=== PATIENT | female | born 1995 | race Caucasian/White ===

== ENCOUNTER 2022-10-18 19:50 | Observation (INO) | payer OTHER, BC, MEDICAID, SELFPAY ==
[2022-10-18 19:30] VITALS: BP 143/103; PULSE 115; RESP 18; TEMP 37.1; O2SAT 100
[2022-10-18 20:14] VITALS: BP 137/90; PULSE 115
[2022-10-18 20:23] VITALS: BMI 40.3
--- NOTE | 2022-10-18 20:23 | OBADM ---
This patient, Judy Vela, admitted to the OB room [facility] for observation. Patient/family oriented to hospital policies and general routines including ID bracelet, bed and alarms, visiting hours, pain management, procedures, bathroom and other care routines, personal items, smoking policy, room service/diet, and visiting hours. Patient/Family are encouraged to report perceived risks to care and to ask questions if they do not understand what they are told or what they should do.
[2022-10-18 20:30] VITALS: BP 128/86; PULSE 120
--- NOTE | 2022-10-28 07:48 | PM.OBTRLD ---
OB - Triage/Final Diagnosis Visit Information Date of evaluation: 10/21/22 Reason for evaluation: other (trauma) Comments/Additional reasons for admission: I have assessed the risk for this patient, Judy Vela, and determined that she would benefit from observation care. Evaluation Laboratory results: Laboratory Tests 10/18/22 21:03 KB Hemoglobin Negative
== END 2022-10-18 21:06 | disposition home or self-care (01) ==
PROVIDERS: Admitting Provider Obstetrics & Gynecology; PCP Internal Medicine; Visit Provider Obstetrics & Gynecology
DX: Z04.1 Encounter for examination and observation following transport accident (principal); Z3A.23 23 weeks gestation of pregnancy
CPT/HCPCS: 36415; 85460; G0378; G0379

== ENCOUNTER 2022-11-07 09:53 | Outpatient (RCR) | payer OTHER, BC, MEDICAID, SELFPAY ==
[2022-11-07] MEDS: RHO(D) IMMUNE GLOBULIN 300 MCG/2 ML SYRINGE IM (12:30)
== END 2022-11-07 10:00 | disposition home or self-care (01) ==
LOC: ANHLAB 09:53
PROVIDERS: PCP Internal Medicine; Visit Provider Obstetrics & Gynecology
DX: Z29.13 Encounter for prophylactic Rho(D) immune globulin (principal); O36.0190 Maternal care for anti-D [Rh] antibodies, unspecified trimester, not applicable or unspecified; Z3A.00 Weeks of gestation of pregnancy not specified
CPT/HCPCS: 36415; 85461; 86850; 86870; 86880; 86900; 86901; 86902; 86971; 90384; 96372; J2790

== ENCOUNTER 2022-12-14 08:21 | Observation (INO) | payer OTHER, BC, MEDICAID, SELFPAY ==
--- NOTE | ~2022-12-14 | US_ITS ---
EXAMINATION: 1. US OB limited 2. US transvaginal DATE: 12/14/2022 09:51 INDICATION: Vaginal bleeding. Third trimester. TECHNIQUE: Real-time ultrasound of the pelvis was performed. COMPARISON: None. FINDINGS: There is a single fetus in vertex presentation. The placenta is anterior. heart rate is 164 be ats per minute (bpm). The amniotic fluid volume is subjectively normal. The cervical length is 5 mm on transvaginal images, which is short. IMPRESSION: 1. Single living fetus in vertex presentation. 2. Normal placenta. 3. Short cervix. Reviewed, dictated and finalized at location A. IMPRESSION: 1. Single living fetus in vertex presentation. 2. Normal placenta. 3. Short cervix.
[2022-12-14 08:45] VITALS: BMI 40.3
[2022-12-14 08:49] VITALS: BP 143/90; PULSE 114
[2022-12-14 09:00] VITALS: BP 133/94; PULSE 124
[2022-12-14 09:15] LABS: Appearance Urine Cloudy (Clear); Bacteria Urine None Seen /hpf; Bilirubin Urine Negative (Negative); Blood Urine 3+ (Negative); Color Urine Dark Yellow (Yellow); Glucose Urine UA Negative (Negative); Ketones Urine Trace mg/dL (Negative); Leukocyte Esterase Ur 1+ LEU/UL (Negative); Nitrate Urine Negative (Negative); Non Pathogenic Casts 0-2; Protein Urine 1+ mg/dL (Negative); Specific Grav Ur 1.019 (1.001-1.035); Squamous Epithelial Cell Urine Moderate /hpf (Few); pH Urine 7.5 (5.0-9.0)
[2022-12-14 09:18] LABS: Add Urine Microscopic? YES
[2022-12-14 09:50] VITALS: BP 132/88; PULSE 105
[2022-12-14 10:01] VITALS: BP 135/83; PULSE 98
--- NOTE | 2022-12-14 10:47 | OBADM ---
This patient, Judy Vela, admitted to the OB room [facility] for observation. Patient/family oriented to hospital policies and general routines including ID bracelet, bed and alarms, visiting hours, pain management, procedures, bathroom and other care routines, personal items, smoking policy, room service/diet, and visiting hours. Patient/Family are encouraged to report perceived risks to care and to ask questions if they do not understand what they are told or what they should do.
--- NOTE | 2022-12-28 08:52 | P.PNOB_ITS ---
OB - Triage/Final Diagnosis Visit Information Comments/Additional reasons for admission: I have assessed the risk for this patient, Judy Vela, and determined that she would benefit from observation care. Evaluation Laboratory results: Laboratory Tests 12/14/22 09:02 Urine Color Dark yellow Urine Appearance Cloudy H Urine pH 7.5 Ur Specific [place] 1.019 Urine Protein 1+ H Urine Glucose (UA) Negative Urine Ketones Trace H Ur Blood (Man) 3+ H Urine Nitrate Negative Urine Bilirubin Negative Urine Urobilinogen 1.0 Leukocyte Esterase Rfl 1+ H Urine RBC 3-5 H Urine WBC 11-20 H Ur Squamous Epith Cells Moderate Urine Bacteria None seen Urine Casts 0-2 Final Diagnosis (1) Vaginal bleeding in : Code(s): O46.90 - Antepartum hemorrhage, unspecified, unspecified trimester Status: Acute
== END 2022-12-14 10:45 | disposition home or self-care (01) ==
PROVIDERS: Admitting Provider Obstetrics & Gynecology; PCP Internal Medicine; Visit Provider Obstetrics & Gynecology
DX: O26.873 Cervical shortening, third trimester (principal); O46.93 Antepartum hemorrhage, unspecified, third trimester; Z3A.31 31 weeks gestation of pregnancy
CPT/HCPCS: 76815; 76817; 76830; 81001; 87086; 87088; G0378; G0379

== ENCOUNTER 2023-01-28 22:53 | Inpatient (IN) | payer OTHER, BC, MEDICAID, SELFPAY ==
[2023-01-28 23:08] VITALS: RESP 18; TEMP 36.4
--- NOTE | 2023-01-28 23:37 | PC.NURSE ---
2337: Dr. Michelle Prather notified of , 37.6 weeks arriving to unit with c/o leaking. MD aware of ROM plus performed with negative results, no contractions, reactive NST, vitals with elevated BP of 151/112, 156/104, and 158/98. PT denies headache, visual disturbances, right upper quadrant and epigastric pain. Orders to admit PT for overnight observation, PIH labs, and cervical exam.
[2023-01-29] VITALS (121 sets, daily range): BP systolic 94–163; BP diastolic 58–108; PULSE 74–161; RESP 14–18; TEMP 36.3–37.4; O2SAT 82–100; BMI 42.1; BMI 41.1
[2023-01-29 00:44] LABS: Basophils Percent Auto 0.2 % (0.2-1.2); Eosinophils Absolute Auto 0.1 K/mm3 (0-0.3); Eosinophils Percent Auto 0.4 % (0-4.4); Hemoglobin 12.5 g/dL (12.0-15.0); Immature Granulocyte Absolute 0.09 K/mm3 (0.00-0.031); Immature Granulocyte Percent A 0.7 % (0-0.5); Lymphocytes Absolute Auto 2.06 K/mm3 (0.9-3.2); Lymphocytes Percent Auto 16.9 % (18.3-44.2); Mean Corpuscular HGB Conc 33.8 g/dl (32-36); Mean Corpuscular Hemoglobin 31.1 pg (26-34); Mean Platelet Volume 10.2 fl (7.4-10.4); Monocytes Absolute Auto 0.8 K/mm3 (0.1-0.6); Monocytes Percent Auto 6.2 % (2.6-8.5); Neutrophils Absolute Auto 9.2 K/mm3 (1.3-6.7); Neutrophils Percent Auto 75.6 % (45.5-73.1); Platelet Count Result 253 k/mm3 (150-375); Red Blood Count 4.02 M/mm3 (4.2-5.4); Red Cell Distribution Width 12.8 % (11.5-14.5); White Blood Count 12.2 K/mm3 (4.5-10.0)
[2023-01-29 01:01] LABS: Alanine Aminotransferase 16 U/L (6-35); Albumin Level 3.5 g/dL (3.5-5.1); Alkaline Phosphatase 134 U/L (38-126); Anion Gap 6 mmol/L (8-16); Aspartate Amino Transferase 19 U/L (14-36); Bilirubin,Total 0.5 mg/dL (0.2-1.3); Blood Urea Nitrogen 10 mg/dL (7-17); Calcium 8.8 mg/dL (8.4-10.2); Carbon Dioxide 23 mmol/L (22-30); Chloride 106 mmol/L (98-107); Estimated Glomerular Filt Rate > 60; Glucose 87 mg/dL (65-110); Sodium 135 mmol/L (137-145); Uric Acid 3.6 mg/dL (2.5-7.5)
[2023-01-29 01:02] LABS: Creatinine Urine 116.7 mg/dL; Total Protein Urine Random 39 mg/dL; Ur Ttl Prot Creatinine Ratio 0.33 mg/mg (0-0.20)
--- NOTE | 2023-01-29 01:10 | PC.NURSE ---
0110: Dr. Michelle Prather notified of vitals, sve, and labs. No new orders received.
--- NOTE | 2023-01-29 01:25 | OBADM ---
This patient, Judy Vela, admitted to the OB room Labor/Delivery/Recovery 107 for observation. Patient/family oriented to hospital policies and general routines including ID bracelet, bed and alarms, visiting hours, pain management, procedures, bathroom and other care routines, personal items, smoking policy, room service/diet, and visiting hours. Patient/Family are encouraged to report perceived risks to care and to ask questions if they do not understand what they are told or what they should do.
[2023-01-29 01:41] LABS: HIV 1/2 Ab P24 Ag Result Negative (Negative)
[2023-01-29 02:44] LABS: Appearance Urine Turbid (Clear); Bacteria Urine 3+ /hpf; Bilirubin Urine Negative (Negative); Blood Urine 1+ (Negative); Color Urine Yellow (Yellow); Glucose Urine UA Negative (Negative); Ketones Urine Negative (Negative); Leukocyte Esterase Ur 3+ LEU/UL (Negative); Need Manual Microscopic Reviewed; Nitrate Urine Negative (Negative); Non Pathogenic Casts 0-2; Protein Urine 1+ mg/dL (Negative); RBC Urine 0-2 /hpf (0-2); Specific Grav Ur 1.015 (1.001-1.035); Squamous Epithelial Cell Urine Moderate /hpf (Few); Urobilinogen Urine 0.2 mg/dL (<2.0); WBC Urine 51-100 /hpf
[2023-01-29 02:46] LABS: Add Urine Microscopic? YES
--- NOTE | 2023-01-29 05:13 | PC.NURSE ---
0513: Dr. Michelle Prather notified of PT elevated BPs of 120/104 and 157/102, PT still asymptomatic. Orders to admit for induction of labor, give 200mg PO Labetolol, and low dose Pitocin.
[2023-01-29] MEDS: LABETALOL HCL 100 MG TABLET 200 MG PO (05:33)
--- NOTE | 2023-01-29 06:13 | PM.IMHP ---
H&P: HPI History of Present Illness Date/Time: 01/29/23 06:13 Chief Complaint: Leaking membranes Narrative: this is a 27-year-old 2 para 1 whose last menstrual period was 05/08/2022, EDC is 02/12/2023, confirmed by 10 week ultrasound presents at 38 weeks gestation complaining of possible rupture membranes. She was negative for leaking membranes however blood pressure was elevated. PIH labs are normal that she remains hypertensive. She has been chronically hypertensive throughout the as well. [facility] Family History Family History Mother Hypertension Son Myoclonic epilepsy Son Autism Social History Social History Smoking status: Never smoker Substance use: never Lack of Transportation: No Lack of Food: Never True Current Housing: I Have Housing Concerned About Future Housing: No Difficulty Paying Gas/Electric Bills: No Difficulty Paying for Meds: No Currently Unemployed: No Education: High School Diploma/GED Difficulty w/ Childcare or Family Care: No Spiritual care concerns: No Meds Home Medications and Allergies Home Medications Medication Instructions Recorded Confirmed Type ondansetron 4 mg disintegrating 4 mg PO Q6H PRN Nausea And Vomiting 01/18/23 01/29/23 History tablet vit no.95-ferrous 1 tablet PO DAILY 01/18/23 01/29/23 History fumarate 28 mg-folic acid 800 mcg tablet () rizatriptan 10 mg disintegrating 10 mg PO ONCE PRN migraines 01/18/23 01/29/23 History tablet Allergies Allergy/AdvReac Type Severity Reaction Status Date / Time No Known Allergies Allergy Unknown Unverified 10/18/22 19:41 Vital Signs Vital Signs - 24 hr 01/29/23 00:01 01/29/23 00:31 01/29/23 01:01 Pulse Rate 93 95 101 H Blood Pressure 150/90 H 156/93 H 145/93 H Pulse Oximetry Oxygen Delivery 01/29/23 02:01 01/29/23 02:16 01/29/23 02:22 Pulse Rate 133 H 88 Blood Pressure 148/108 H 144/91 H Pulse Oximetry 98 Oxygen Delivery 01/29/23 02:27 01/29/23 02:31 01/29/23 02:32 Pulse Rate 89 Blood Pressure 152/94 H Pulse Oximetry 96 98 Oxygen Delivery 01/29/23 02:37 01/29/23 02:42 01/29/23 02:46 Pulse Rate 114 H Blood Pressure 140/93 H Pulse Oximetry 97 97 Oxygen Delivery 01/29/23 02:47 01/29/23 02:52 01/29/23 02:57 Pulse Rate Blood Pressure Pulse Oximetry 98 98 98 Oxygen Delivery 01/29/23 03:01 01/29/23 03:02 01/29/23 03:07 Pulse Rate 80 Blood Pressure 146/91 H Pulse Oximetry 97 97 Oxygen Delivery 01/29/23 03:12 01/29/23 03:17 01/29/23 03:22 Pulse Rate Blood Pressure Pulse Oximetry 97 97 96 Oxygen Delivery 01/29/23 03:27 01/29/23 03:31 01/29/23 03:32 Pulse Rate 105 H Blood Pressure 145/93 H Pulse Oximetry 98 98 Oxygen Delivery 01/29/23 03:37 01/29/23 03:42 01/29/23 03:47 Pulse Rate Blood Pressure Pulse Oximetry 98 96 97 Oxygen Delivery 01/29/23 03:52 01/29/23 03:57 01/29/23 04:01 Pulse Rate 99 Blood Pressure 132/72 Pulse Oximetry 97 97 Oxygen Delivery 01/29/23 04:02 01/29/23 04:07 01/29/23 04:12 Pulse Rate Blood Pressure Pulse Oximetry 98 97 97 Oxygen Delivery 01/29/23 04:17 01/29/23 04:22 01/29/23 04:27 Pulse Rate Blood Pressure Pulse Oximetry 97 97 97 Oxygen Delivery 01/29/23 04:31 01/29/23 04:32 01/29/23 04:37 Pulse Rate 103 H Blood Pressure 108/81 Pulse Oximetry 98 98 Oxygen Delivery 01/29/23 04:42 01/29/23 04:47 01/29/23 04:52 Pulse Rate Blood Pressure Pulse Oximetry 97 97 96 Oxygen Delivery 01/29/23 04:57 01/29/23 05:02 01/29/23 05:07 Pulse Rate 101 H Blood Pressure 120/104 H Pulse Oximetry 97 99 98 Oxygen Delivery 01/29/23 05:09 01/29/23 05:12 01/29/23 05:16 Pulse Rate 87 94 Blood Pressure 157/1
[2023-01-29] MEDS: OXYTOCIN 30 UNITS/NS 500 ML 30 UNITS/500 ML BAG IV CONT (08:04)
[2023-01-29] MEDS: LACTATED RINGERS 1,000 ML 125 ML IV CONT (08:05)
[2023-01-29 09:17] LABS: HIV 1/2 Ab P24 Ag Result Negative (Negative)
[2023-01-29] MEDS: SODIUM CHLORIDE 0.9% IV 300 ML 600 ML I-UTERINE (09:55)
[2023-01-29] MEDS: fentaNYL CITRATE INJ (*CRX) 100 MCG/2 ML VIAL 50 MCG IV PUSH (09:56)
--- NOTE | 2023-01-29 10:33 | PC.NURSE ---
0953 - Introductions were made. Mother plans to bottle feed her infant with Enfamil. Early congratulations were given and encouragement of [facility] supporting mothers decision to feed her . Offer of assistance was given if mother should choose to make breast milk for her at a later time with supportive language to her decision. Primary RN is present for the brief conversation.
--- NOTE | 2023-01-29 10:36 | WPDANESEPPF ---
Anes - Initial Pre Proc Eval Procedure: labor epidural Date/Time: 01/29/23 10:36 Surgeon: Reji Prather MD Pre Op Diagnosis: labor pain Pre Op Diagnosis: PIH Patient Data Age: 27 Gender: F Height: 1.57 m Weight: 104.5 kg Last Vital Signs Temp 36.8 C 01/29/23 09:00 Pulse 84 01/29/23 10:31 Resp 18 01/28/23 23:08 BP 150/99 H 01/29/23 10:31 Pulse Ox 100 01/29/23 10:34 O2 Del Method Room Air 01/29/23 00:30 Allergies Allergy/AdvReac Type Severity Reaction Status Date / Time No Known Allergies Allergy Unknown Unverified 10/18/22 19:41 Home Medications Medication Instructions Recorded Confirmed Type ondansetron 4 mg disintegrating 4 mg PO Q6H PRN Nausea And Vomiting 01/18/23 01/29/23 History tablet vit no.95-ferrous 1 tablet PO DAILY 01/18/23 01/29/23 History fumarate 28 mg-folic acid 800 mcg tablet () rizatriptan 10 mg disintegrating 10 mg PO ONCE PRN migraines 01/18/23 01/29/23 History tablet Laboratory Tests 01/29/23 01/29/23 01/29/23 00:17 05:30 08:07 WBC 12.2 H K/mm3 (4.5-10.0) RBC 4.02 L M/mm3 (4.2-5.4) Hgb 12.5 g/dL (12.0-15.0) Hct 37.0 % (37.0-47.0) MCV 92.0 fl (80-100) MCH 31.1 pg (26-34) MCHC 33.8 g/dl (32-36) RDW 12.8 % (11.5-14.5) Plt Count 253 k/mm3 (150-375) MPV 10.2 fl (7.4-10.4) Immature Gran % (Auto) 0.7 H % (0-0.5) Neut % (Auto) 75.6 H % (45.5-73.1) Lymph % (Auto) 16.9 L % (18.3-44.2) [place] % (Auto) 6.2 % (2.6-8.5) Eos % (Auto) 0.4 % (0-4.4) Baso % (Auto) 0.2 % (0.2-1.2) Lymph # (Auto) 2.06 K/mm3 (0.9-3.2) Travis # (Auto) 0.8 H K/mm3 (0.1-0.6) Eos # (Auto) 0.1 K/mm3 (0-0.3) Baso # (Auto) 0.0 K/mm3 (0.0-0.1) Abs Immat Gran (auto) 0.09 H K/mm3 (0.00-0.031) Absolute Neuts (auto) 9.2 H K/mm3 (1.3-6.7) Absolute Nucleated RBC 0.0 K/mm3 (0.0-0.012) Nucleated RBC % 0.0 % (0.0-0.2) Sodium 135 L mmol/L (137-145) Potassium 4.0 mmol/L (3.4-5.0) Chloride 106 mmol/L (98-107) Carbon Dioxide 23 mmol/L (22-30) Anion Gap 6 L mmol/L (8-16) BUN 10 mg/dL (7-17) Creatinine 0.70 mg/dL (0.7-1.0) Estim Creat Clear Calc Not Reportable Estimated GFR > 60 (59 - ) Glucose 87 mg/dL (65-110) Uric Acid 3.6 mg/dL (2.5-7.5) Calcium 8.8 mg/dL (8.4-10.2) Total Bilirubin 0.5 mg/dL (0.2-1.3) AST 19 U/L (14-36) ALT 16 U/L (6-35) Alkaline Phosphatase 134 H U/L (38-126) Total Protein 7.0 g/dL (6.3-8.2) Albumin 3.5 g/dL (3.5-5.1) Urine Color Yellow (Yellow) Urine Appearance Turbid H (Clear) Urine pH 7.0 (5.0-9.0) Ur Specific [place] 1.015 (1.001-1.035) Urine Protein 1+ H mg/dL (Negative) Urine Glucose (UA) Negative mg/dL (Negative) Urine Ketones Negative mg/dL (Negative) Ur Blood (Man) 1+ H (Negative) Urine Nitrate Negative (Negative) Urine Bilirubin Negative (Negative) Urine Urobilinogen 0.2 mg/dL (<2.0) Add Ur Microanalysis Reviewed Leukocyte Esterase Rfl 3+ H PIA/UL (Negative) Urine RBC 0-2 /hpf (0-2) Urine WBC 51-100 H /hpf Ur Squamous Epith Cells Moderate /hpf (Few) Urine Bacteria 3+ H /hpf Urine Casts 0-2 U Random Total Protein 39 mg/dL Urine Creatinine 116.7 mg/dL Protein/Creat Ratio 2 0.33 H mg/mg (0-0.20) RPR Pending HIV 1&2 Ab/P24 Ag 4thGn Negative Negative (Negative) (Negative) Pa
--- NOTE | 2023-01-29 12:07 | PM.OBPRVD ---
OB - Delivery Note Procedure Delivery date: 01/29/23 Procedure: mil Events: Chronic Hypertension and Gestational Hypertension Induction method: AROM Delivery augmentation: Pitocin Delivery monitor: External FHT and Internal Uterine Route of delivery: Episiotomy description: None Laceration Description: Perineal - 2nd Degree Delivery repair: vicryl Specimen: No Quantitative Blood Loss (ml): 60 Anesthesia type: Epidural Disposition: Floor Baby Date of : 01/29/23 Time of : 11:56 Weeks of gestation at delivery: 38 Infant gender: Female Weight (pounds): 6 Weight (ounces): 1 presentation: vertex position: Right Occiput Anterior Placenta delivery description: Spontaneous Cord Vessel Description: 3 Vessels, Nuchal Cord and Loose score one minute: 7 score five minutes: 9
[2023-01-29] MEDS: OXYTOCIN 30 UNITS/NS 500 ML 30 UNITS/500 ML BAG 125 UNITS IV CONT (12:24)
[2023-01-29] MEDS: WITCH HAZEL 40 PADS 1 PAD TOPICAL (14:29)
[2023-01-29] MEDS: BENZOCAINE 20% AER SPR (*SP) 56 GM CAN 1 SPRAY TOPICAL (14:29)
[2023-01-30 04:00] VITALS: BP 130/81; PULSE 85; RESP 16; TEMP 36.3; O2SAT 100
[2023-01-30 05:29] LABS: Hemoglobin 11.3 g/dL (12.0-15.0)
--- NOTE | 2023-01-30 06:49 | PM.OBPNVD ---
OB - PN: Subj Subjective Date/time seen: 01/30/23 06:49 Patient comments: no complaints and pain well controlled baby status: doing well OB - PN: Obj Data Labs 01/30/23 04:06 01/29/23 00:17 Labs: Laboratory Results - last 24 hr 01/29/23 01/29/23 01/30/23 08:07 08:42 04:06 Hgb 11.3 L Hct 34.0 L HIV 1&2 Ab/P24 Ag 4thGn Negative Blood Type A Negative Antibody Screen Positive Positive OB - PN A/P Plan day: 1 Plan: routine care Time Spent With Patient Time: Total time spent is greater than 50% in coordination of care (as documented) at patient's floor/unit and/or counseling patient: Time with patient: less than 15 minutes Exam Const: General: cooperative, healthy appearing and comfortable Nutritional Appearance: average body habitus Orientation/consciousness: oriented to person, oriented to place and oriented to time HENMT: Head: normal to inspection Resp: Effort & Inspection: normal respiratory effort Cardio: Rate: regular rate Rhythm: regular rhythm Heart sounds: S1 normal heart sound present and S2 normal heart sound present GI: Inspection: normal to inspection
--- NOTE | 2023-01-30 06:51 | PM.DS ---
DS: Admitting Diagnosis Discharge Date 01/31/2023 Admitting Diagnosis Term DS: Discharge Diagnosis Discharge Diagnosis (1) Gestational hypertension: Code(s): O13.9 - Gestational [-induced] hypertension without significant proteinuria, unspecified trimester Status: Acute (2) Term : Code(s): Z34.90 - Encounter for supervision of normal , unspecified, unspecified trimester Status: Acute DS: Summary Hospital Course Reason for hospitalization: patient was admitted for induction of labor secondary to elevated blood pressures Hospital Course: patient underwent successful induction of labor. She had PIH labs which were all negative. her blood pressures were normal. She remained afebrile. She was up, voiding without difficulty, eating regular diet, ambulating, generally without complaints. Time Spent with Patient Time attestation: Total time spent providing and/or coordinating discharge services: Exam Const: General: cooperative, healthy appearing and comfortable Nutritional Appearance: average body habitus Orientation/consciousness: oriented to person, oriented to place and oriented to time HENMT: Head: normal to inspection Resp: Effort & Inspection: normal respiratory effort Cardio: Rate: regular rate Rhythm: regular rhythm Heart sounds: S1 normal heart sound present and S2 normal heart sound present GI: Inspection: normal to inspection DS: Data Data Completed and Pending Labs on day of discharge: Labs from last 24 hours 01/30/23 01/29/23 01/29/23 04:06 08:42 08:07 Hgb 11.3 L Hct 34.0 L RPR HIV 1&2 Ab/P24 Ag 4thGn Negative Blood Type A Negative Pending Antibody Screen Positive Positive Antibody Identification Pending Pending Antigen Identification Pending Pending EMMANUEL, IgG Interpret Pending Pending EMMANUEL, Poly Interpret Pending Pending EMMANUEL, Complement Interp Pending Pending Screen Pending Baby's Blood Type Pending Baby's EMMANUEL Pending Doses of RhIg Required Pending 01/29/23 05:30 Hgb Hct RPR Pending HIV 1&2 Ab/P24 Ag 4thGn Blood Type Antibody Screen Antibody Identification Antigen Identification EMMANUEL, IgG Interpret EMMANUEL, Poly Interpret EMMANUEL, Complement Interp Screen Baby's Blood Type Baby's EMMANUEL Doses of RhIg Required Discharge Plan Discharge Attending physician on discharge: Reji Lockett Discharging Clinician: Reji Lockett Patient Disposition: Home, Self-Care Activity: may shower and pelvic rest Diet: heart healthy Wound Care Instructions: follow printed instructions Patient Instructions: Antibiotic Form Stand Alone Forms: General Discharge Information Follow-up/Referrals: Reji Lockett MD [Physician] - Discharge Medications: Continued rizatriptan 10 mg Tablet,Disintegrating 10 mg PO ONCE PRN (Reason: migraines) Rx Instructions: may repeat once after at least 2 hours ondansetron 4 mg Tablet,Disintegrating 4 mg PO Q6H PRN (Reason: Nausea And Vomiting) PNV cmb#95-ferrous fumarate-FA [] 28 mg iron- 800 mcg Tablet 1 tablet PO DAILY Date of admission: 01/28/23 22:53 Primary Care Provider: Samy Reaves Admitting Provider: Reji Lockett Attending physician on admission: Reji Lockett Condition: Stable
--- NOTE | 2023-01-30 07:50 | WPDANLDPN2 ---
Anes-Prog Note L&D Date/Time: 01/30/23 07:50 Comfortable throughout: labor and delivery Neuraxial method: epidural Epidural/Spinal procedure site: clean & non-tender Neuro status: Neuro function grossly intact. Cardiovascular status: normal Respiratory status: normal Airway patency: baseline Mental status: baseline Post-Op hydration status: normal Vital Signs: Last Vital Signs Temp 36.3 C L 01/30/23 04:00 Pulse 85 01/30/23 04:00 Resp 16 01/30/23 04:00 BP 130/81 01/30/23 04:00 Pulse Ox 100 01/30/23 04:00 O2 Del Method Room Air 01/30/23 04:00 Pain score (VAS): 2/10 I/O: Intake & Output 01/29/23 01/29/23 01/30/23 15:59 23:59 07:59 Intake Total 500 500 Output Total 250 Balance 500 250 Post-procedural complaints: none Patient feedback: Patient satisfied with anesthetic care.
[2023-01-30 08:20] VITALS: BP 118/73; PULSE 87; RESP 16; TEMP 36.6; O2SAT 100
[2023-01-30] MEDS: DOCUSATE SODIUM 100 MG CAPSULE PO (11:32)
[2023-01-30] MEDS: RHO(D) IMMUNE GLOBULIN 300 MCG/2 ML SYRINGE IM (11:33)
[2023-01-30 16:23] LABS: Rapid Plasma Reagin Non-Reactive (NonReactive)
[2023-01-30 19:45] VITALS: BP 137/84; PULSE 91; RESP 18; TEMP 36.5; O2SAT 100
[2023-01-31 01:00] VITALS: BP 143/84; PULSE 78; RESP 18; O2SAT 99
[2023-01-31 05:21] VITALS: BP 135/87; PULSE 86; RESP 18; O2SAT 99
--- NOTE | 2023-01-31 06:48 | PM.OBPNVD ---
OB - PN: Subj Subjective Date/time seen: 01/31/23 06:48 Patient comments: no complaints and pain well controlled baby status: doing well OB - PN: Obj Data Labs 01/30/23 04:06 01/29/23 00:17 Labs: Laboratory Results - last 24 hr 01/29/23 01/30/23 05:30 04:06 RPR Non-reactive Blood Type A Negative Antibody Screen Positive Antibody Identification Cancelled Antigen Identification Cancelled EMMANUEL, IgG Interpret Cancelled EMMANUEL, Poly Interpret Cancelled EMMANUEL, Complement Interp Cancelled Screen Negative Baby's Blood Type A pos Baby's EMMANUEL Negative Doses of RhIg Required 1 OB - PN A/P Plan day: 2 Plan: routine care, discharge home and follow up 6 weeks Time Spent With Patient Time: Total time spent is greater than 50% in coordination of care (as documented) at patient's floor/unit and/or counseling patient: Time with patient: less than 15 minutes Exam Const: General: cooperative, healthy appearing, comfortable and overweight Orientation/consciousness: oriented to person, oriented to place and oriented to time HENMT: Head: normal to inspection Resp: Effort & Inspection: normal respiratory effort Cardio: Rate: regular rate Rhythm: regular rhythm Heart sounds: S1 normal heart sound present and S2 normal heart sound present GI: Inspection: normal to inspection ( fundus firm below the umbilicus)
[2023-01-31 07:50] VITALS: BP 137/93; PULSE 80; RESP 16; TEMP 36.8; O2SAT 97
[2023-02-03 11:24] VITALS: BP 133/87; PULSE 103; RESP 20; TEMP 36.8; O2SAT 100
== END 2023-01-31 12:26 | disposition home or self-care (01) | DRG 807 ==
LOC: ANHLDR 01-29 05:29 → ANHOB2 01-29 15:17
PROVIDERS: Admitting Provider Obstetrics & Gynecology; PCP Internal Medicine; Visit Provider Obstetrics & Gynecology
DX: O13.4 Gestational [pregnancy-induced] hypertension without significant proteinuria, complicating childbirth (principal); Z37.0 Single live birth; O77.0 Labor and delivery complicated by meconium in amniotic fluid; O70.1 Second degree perineal laceration during delivery; O69.81X0 Labor and delivery complicated by cord around neck, without compression, not applicable or unspecified; O10.92 Unspecified pre-existing hypertension complicating childbirth; Z3A.38 38 weeks gestation of pregnancy
CPT/HCPCS: 36415; 80053; 81001; 82570; 84112; 84156; 84550; 85014; 85018; 85025; 85461; 86592; 86703; 86850; 86870; 86880; 86900; 86901; 86902; 87086; 87088; 90384; A9270; G0432; J2590; J2790; J2795; J3010; J7030; J7120

== ENCOUNTER 2023-03-21 01:04 | Day surgery (SDC) | payer OTHER, BC, MEDICAID, SELFPAY ==
[2023-03-12 17:20] VITALS: BMI 37.9
--- NOTE | 2023-03-12 17:27 | PC.NURSE ---
Report to the Outpatient Waiting Room, entrance under the green pavilion located off [facility], at time 09:30am on date 03-21-23. Planned Procedure Time: 11:30am. Time changes happen often and if your time is changed the preop area will call you the afternoon before. - You and your visitor will be asked to self-screen and do not enter if you have any COVID symptoms. - A mask is optional within the hospital at this time. Patients may have clear liquids (water, carbonated beverages, clear teas, apple juice) until 3 hours prior to surgery (08:30am) with a maximum of 20 ounces. - No food from midnight until time of surgery Take the following medications with a SIP of water the morning of surgery: excedrin as needed DO NOT STOP ANY OF YOUR OTHER PRESCRIPTION MEDICATIONS PRIOR TO SURGERY ?EXCEPT THE FOLLOWING Medications to discontinue per physician: n/a Please no make-up, nail haitian, hairspray, perfume, deodorant, or body powder the day of surgery. No jewelry (including any body piercings) or valuables the day of surgery, leave them at home. Please take a shower or bath the night before, or the morning of, surgery with an antibacterial soap. Wear comfortable, loose fitting clothing. - Jewelry must be removed prior to entering the operating room. Rings and piercings that are not removed may be cut off. - The hospital will not accept responsibility for valuables. - Please leave all valuables, including medications, at home the day of surgery. If you are going home after surgery, a licensed garbage truck driver must drive you home. - NO public transportation without another adult if you receive anesthesia. - We recommend that an adult stay with you for 24 hours following discharge. - We also recommend that you do not drive, make important decision, drink alcoholic beverages, or take any drugs that were not prescribed by your health care provider for at least 24 hours after your discharge time. Follow any additional instructions given to you from your surgeon. If you or anyone in your household have experienced Covid symptoms in the past week, please notify your surgeon or the nurse liaison at the phone number below for possible testing. Telephone instructions given to PATIENT and asked if any additional questions and then verbalized understanding. Patient advised to call surgeon office or pre surgery nurse liaison [phone] if any additional questions.
--- NOTE | 2023-03-19 07:13 | P.HP_ITS ---
H&P: HPI History of Present Illness Date/Time: 03/19/23 07:13 Chief Complaint: Sterilization Narrative: / 27-year-old multiparous patient for sterilization. She desires permanent irreversible sterilization. Alternatives including not exclusive of pills, patches, injections, implants, were all offered. She understands this to be permanent and irreversible. She understands the failure rate of 10/999. She r eceived the [employer] handout entitled sterilization for men and women. She had all questions answered. She asked to proceed PMF Family History Family History Mother Hypertension Son Myoclonic epilepsy Son Autism Social History Social History Smoking status: Never smoker Second hand tobacco smoke exposure: No Alcohol intake: never Substance use: never Substance use type: does not use Lack of Transportation: No Lack of Food: Never True Current Housing: I Have Housing Concerned About Future Housing: No Difficulty Paying Gas/Electric Bills: No Difficulty Paying for Meds: No Currently Unemployed: No Education: High School Diploma/GED Difficulty w/ Childcare or Family Care: No Living arrangements: with family Spiritual care concerns: No Meds Home Medications and Allergies Home Medications Medication Instructions Recorded Confirmed Type rizatriptan 10 mg disintegrating 10 mg PO ONCE PRN migraines 01/18/23 03/12/23 History tablet Excedrin Migraine 2 tab-cap PO PRN PRN migraines 03/12/23 03/12/23 History Allergies Allergy/AdvReac Type Severity Reaction Status Date / Time No Known Allergies Allergy Unknown Verified 03/12/23 17:21 Exam Const: General: cooperative, healthy appearing and comfortable Nutritional Appearance: average body habitus Orientation/consciousness: oriented to person, oriented to place and oriented to time HENMT: Head: normal to inspection Resp: Effort & Inspection: normal respiratory effort Cardio: Rate: regular rate Rhythm: regular rhythm Heart sounds: S1 normal heart sound present and S2 normal heart sound present GI: Inspection: normal to inspection : External Female Exam: normal external appearance Speculum Exam - Vagi na: normal appearance of the vagina Speculum Exam - Cervix: normal appearance of the cervix Bimanual exam- vagina & uterus: non-tender Bimanual Exam- Adnexa, other: normal adnexae Assessment and Plan Assessment and plan (1) Sterilization: Code(s): Z30.2 - Encounter for sterilization Status: Acute Plan laparoscopic bilateral tubal ligation
[2023-03-21] VITALS (13 sets, daily range): BP systolic 116–145; BP diastolic 79–99; PULSE 78–109; RESP 10–21; TEMP 36.1–36.8; O2SAT 95–100
--- NOTE | 2023-03-21 06:31 | WPDHPUPDATE1 ---
History and Physical Update Update Date/Time: 03/21/23 06:31 History and Physical has been reviewed, including an updated exam of the patient. There are NO changes in the patient's condition. Risks, benefits, and alternatives have been discussed and questions answered. Patient agrees to proceed with procedure.
--- NOTE | 2023-03-21 10:55 | WPDANESEPPF ---
Anes - Initial Pre Proc Eval Procedure: Operation Date: 03/21/23 11:30 Proposed Procedures p Laparoscopic Tubal Ligation - Reji Prather MD Date/Time: 03/21/23 10:55 Surgeon: Reji Prather MD Pre Op Diagnosis: desires sterilization Patient Data Age: 27 Gender: F Height: 1.57 m Weight: 92.41 kg Last Vital Signs Temp 36.1 C L 03/21/23 10:43 Pulse 97 03/21/23 10:43 Resp 14 03/21/23 10:43 BP 144/95 H 03/21/23 10:43 Pulse Ox 100 03/21/23 10:43 O2 Del Method Room Air 03/21/23 10:43 Allergies Allergy/AdvReac Type Severity Reaction Status Date / Time No Known Allergies Allergy Unknown Verified 03/12/23 17:21 Home Medications Medication Instructions Recorded Confirmed Type rizatriptan 10 mg disintegrating 10 mg PO ONCE PRN migraines 01/18/23 03/12/23 History tablet Excedrin Migraine 2 tab-cap PO PRN PRN migraines 03/12/23 03/12/23 History hydrocodone 5 mg-acetaminophen 325 1 tablet PO Q4H PRN pain #20 tabs 03/21/23 Rx mg tablet Patient hx anesthesia problems: none Family hx anesthesia problems: none Results Review: All pre-operative results and documents have been reviewed as part of the pre-operative evaluation. [facility] Family History Family History Mother Hypertension Son Myoclonic epilepsy Son Autism Social History Social History Smoking status: Never smoker Second hand tobacco smoke exposure: No Alcohol intake: never Substance use: never Substance use type: does not use Lack of Transportation: No Lack of Food: Never True Current Housing: I Have Housing Concerned About Future Housing: No Difficulty Paying Gas/Electric Bills: No Difficulty Paying for Meds: No Currently Unemployed: No Education: High School Diploma/GED Difficulty w/ Childcare or Family Care: No Living arrangements: with family Spiritual care concerns: No Anes - Eval Final PreProcedure Day of Procedure 03/21/23 10:55 Patient weight: obese Heart: regular rate and rhythm Lungs: clear to auscultation Airway: Mallampati scale class III Neurological: alert and oriented Last oral intake: >/= 8 hours ASA classification: II Emergent: no Anesthetic plan: proceed Anesthesia type and monitoring: general ETT and standard monitoring Results Review: All pre-operative results and documents have been reviewed as part of the pre-operative evaluation. Informed Consent: The patient's anesthetic plan and its attendant risks and benefits were discussed with the patient/family/POA. Questions were solicited and answers provided to the satisfaction of the patient/family/POA.
[2023-03-21] MEDS: LACTATED RINGERS 1,000 ML 30 ML IV CONT (11:05)
[2023-03-21] MEDS: KETOROLAC 15 MG/ML VIAL (*BKC) IV PUSH ×2 (11:05→13:48)
--- NOTE | 2023-03-21 11:52 | P.OP_ITS ---
Procedure Note - Detailed Date of Procedure 03/21/23 Pre-op Diagnosis desires sterilization Post-op Diagnosis Same Procedure Performed Laparoscopic bilateral tubal ligation with rings Surgeon Reji Prather MD Anesthesia General Indications this is a 27-year-old multiparous patient who desires permanent sterilization Findings normal-appearing ovaries tubes and uterus. Small areas of endometriosis on cul-de-sac Description of Procedure patient is prepped draped in normal sterile fashion placed in the dorsal lithotomy position. Under excellent general trach anesthesia weighted speculum placed posterior fornix vagina. Anterior lip of the cervix grasped with single- tooth tenaculum. Single-tooth was attached to a uterine cannula to be attached later uterus for any ablation. Bladder was emptied of clear urine and a weighted speculum was removed. Gloves were changed. Supraumbilical incision made the Veress needle passed in the abdomen. Abdomen filled with CO2 gas to 15mm Hg. 5mm trocar advanced under direct visualization with the trocar and no injury seen. Patient placed in Trendelenburg and a suprapubic incision made. The 8mm trocar advanced under direct visualization assuring no acute photo documentation was undertaken. The left fallopian tube was then grasped and a good knuckle of tube formed with the ring. Excellent blanching was seen. In like fashion the opposite tube was grasped at its midportion a good knuckle of tube formed. Photo documentation was undertaken. The lower site was removed. The upper site removed after gas removed from the abdomen. The incisions closed with 4 Monocryl and glue. Instruments removed from the vagina. The patient went to recovery in satisfactory condition. All sponge needle, instrument counts were correct. There were no immediate complications Estimated Blood Loss 5 Drains No Packing No Pathology None sent Complications No immediate complications Condition Stable Disposition PACU
[2023-03-21] MEDS: fentaNYL CITRATE INJ (*CRX) 100 MCG/2 ML VIAL 25 MCG IV PUSH ×8 (12:12→12:40)
[2023-03-21] MEDS: ONDANSETRON INJ 4 MG/2 ML VIAL IV PUSH (12:34)
[2023-03-21] MEDS: diazePAM INJ (*CRX) 10 MG/2 ML SYRINGE 2.5 MG IV PUSH (12:47)
[2023-03-21] MEDS: HYDROmorphone HCL INJ (*CRX) 1 MG/ML SYR 0.5 MG IV PUSH ×4 (12:47→13:54)
--- NOTE | 2023-03-21 13:14 | SUR.PHASEI ---
1300 - pt shivering. not a restless as previously. states pain continues to be at same level. warming blanket on d/t shivering. small bite of ice chips.
[2023-03-21] MEDS: oxyCODONE HCL (*CRX) 5 MG TAB IR PO (14:40)
--- NOTE | 2023-03-21 15:36 | SUR.PHASEII ---
Patient dressed, vital signs stable. IV removed. Patient awaiting ride home.
== END 2023-03-21 15:50 | disposition home or self-care (01) ==
PROVIDERS: PCP Internal Medicine; Visit Provider Obstetrics & Gynecology
PROC: (CPT 58671; principal; 2023-03-21 11:30)
DX: Z30.2 Encounter for sterilization (principal); N80.8 Other endometriosis; E66.9 Obesity, unspecified; Z68.37 Body mass index [BMI] 37.0-37.9, adult
CPT/HCPCS: 58671; A4264; A9270; J1170; J1885; J2250; J2405; J3010; J3360; J7120

== ENCOUNTER 2023-06-09 15:57 | Outpatient (CLI) | payer OTHER, MEDICAID, SELFPAY ==
--- NOTE | ~2023-06-09 | XR_ITS ---
XR ankle LT min 3V DATE: 06/09/2023 16:34 INDICATION: Left ankle pain TECHNIQUE: 4 views COMPARISON: None FINDINGS: No fracture or dislocation of the ankle or disruption of the ankle mortise. No periosteal r eaction or bone destruction. IMPRESSION: Negative Reviewed, dictated and finalized at location B. IMPRESSION: Negative
--- NOTE | ~2023-06-09 | XR_ITS ---
XR thoracic spine 3V DATE: 06/09/2023 16:33 INDICATION: Back pain TECHNIQUE: AP, lateral, swimmer views COMPARISON: None FINDINGS: No fracture or dislocation or bone destruction. The thoracic pedicles are intact. Thoracic interspaces are preserved. No paraspinal soft tissue thickening. No scoliosis. IMPRESSION: Negative Reviewed, dictated and finalized at location B. IMPRESSION: Negative
--- NOTE | ~2023-06-09 | XR_ITS ---
Corrected Report Order # Associated See Bolded Text for corrections to title 06/10/2023 SLJ This report was recreated on 06/10/2023. Original report was signed by signed by Juliano Steven M.D. on 06/09/2023 17:14 CDT. XR foot LT min 3V DATE: 06/09/2023 16:34 INDICATION: Left foot pain TECHNIQUE: 4 views COMPARISON: None FINDINGS: No fracture or dislocation, periosteal reaction or bone destruction. Joint spaces are preserved. No erosive change. IMPRESSION: Negative Reviewed, dictated and finalized at location B. MTDD IMPRESSION: Negative
--- NOTE | ~2023-06-09 | XR_ITS ---
XR lumbar spine 2-3V DATE: 06/09/2023 16:33 INDICATION: Back pain. TECHNIQUE: AP, lateral, coned lateral lumbosacral views COMPARISON: None FINDINGS: Normal alignment. No fracture or bone destruction or spondylolisthesis. The lumbar pedicles are intact. Lumbosacral interspaces are well preserved. The sacroiliac joints appear normal. IMPRESSION: Negative Reviewed, dictated and finalized at location B. IMPRESSION: Negative
== END 2023-06-09 15:58 | disposition home or self-care (01) ==
LOC: CHSIMG 16:01
PROVIDERS: PCP Internal Medicine; Visit Provider Internal Medicine
DX: M54.50 Low back pain, unspecified (principal); M79.672 Pain in left foot
CPT/HCPCS: 72072; 72100; 73610; 73630

== ENCOUNTER 2024-12-11 12:33 | Outpatient (CLI) | payer OTHER, MEDICAID, SELFPAY ==
[2024-12-11 13:16] LABS: Basophils Percent Auto 0.4 % (0.2-1.2); Eosinophils Absolute Auto 0.1 K/mm3 (0-0.3); Eosinophils Percent Auto 1.4 % (0-4.4); Hematocrit 42.6 % (37.0-47.0); Hemoglobin 14.3 g/dL (12.0-15.0); Immature Granulocyte Absolute 0.05 K/mm3 (0.00-0.031); Immature Granulocyte Percent A 0.6 % (0-0.5); Lymphocytes Absolute Auto 2.48 K/mm3 (0.9-3.2); Lymphocytes Percent Auto 30.8 % (18.3-44.2); Mean Corpuscular HGB Conc 33.6 g/dl (32-36); Mean Corpuscular Hemoglobin 30.5 pg (26-34); Mean Corpuscular Volume 90.8 fl (80-100); Mean Platelet Volume 9.3 fl (7.4-10.4); Monocytes Absolute Auto 0.7 K/mm3 (0.1-0.6); Monocytes Percent Auto 8.6 % (2.6-8.5); Neutrophils Absolute Auto 4.7 K/mm3 (1.3-6.7); Neutrophils Percent Auto 58.2 % (45.5-73.1); Platelet Count Result 299 k/mm3 (150-375); Red Blood Count 4.69 M/mm3 (4.2-5.4); Red Cell Distribution Width 11.9 % (11.5-14.5); White Blood Count 8.1 K/mm3 (4.5-10.0)
--- OUTSIDE RECORDS SUMMARY | 2024-12-11 16:33 | XMS_ITS | Clinical Summary ---
Author Organization [facility] Address [address] [place] [address] Care Team Providers Care Pantograph Machine Set Up Operator Name Role Phone Samy Reaves MD Primary Care Provider [phone] Allergies No known active allergies Medications escitalopram (LEXAPRO) 10 mg tablet 08/10/2024 Active predniSONE (DELTASONE) 10 mg tablet Take 5 tabs (50mg) daily for 2 days, then take 4 tabs (40mg) daily for 2 days. Continue to decrease by 1 tab (10mg) every 2 days until gone. 30 tablet 10/19/2024 Active benzonatate (TESSALON) 100 mg capsuleIndicati ons:Cough Take 1 capsule (100 mg total) by mouth 3 (three) times a day as needed for cough 21 capsule 10/19/2024 Active azithromycin (ZITHROMAX) 250 mg tablet Take 2 tabs (500 mg) by mouth today, than 1 tab (250 mg) daily for 4 days. 6 tablet 10/19/2024 Active Active Problems Problem Noted Date Diagnosed Date Bilateral impacted cerumen 05/22/2022 Assessment & Plan (05/22/2022 1:14 PM CDT): Removed without difficulty. Abnormal auditory perception of both ears 2021 Assessment & Plan (05/22/2022 1:14 PM CDT): Seemed to improve after her ears were cleaned. No need for further intervention. Would recommend testing if she still notices significant problems. 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 premature rupture of membranes (PPROM) delivered, current hospitalization 11/22/2014 Overview (10/19/2024): 11/22/2014 Supervision of high risk in third trim pedro 11/22/2014 Overview (10/19/2024): Datinw doc scan PNL's requested GCT 84 Encounters Date Type Department Care Team Description 10/19/2024 2:00 PM CDT Office Visit [facility] Convenient Care at [address] [phone] Tessy Mann PA Acute cough (Primary Dx) 09/30/2024 11:15 AM POSTPARTUM NURSE Ancillary Procedure [facility] Imaging at [address] [phone] Influenza A 09/30/2024 10:45 AM POSTPARTUM NURSE Office Visit [facility] Medical [facility] Convenient Care at [address] [phone] Tessy Mann PA Influenza A (Primary Dx) from Last 3 Months Surgical History Surgery Date Site/Laterality Comments WISDOM TOOTH EXTRACTION TUBAL LIGATION 03/11/2023 - 04/10/2023 Medical History Medical History Date Comments Migraine Family History Medical History Relation Name Comments No Known Problems Father No Known Problems Mother Relation Name Status Comments Father Mother Social History Tobacco Use Types Packs/Day Years Used Date Smoking Tobacco: Never Smokeless Tobacco: Never Tobacco Cessation:Counseling Given: Not Answered Comments No Sex and Gender Information Value Date Recorded Sex Assigned at Not on file Legal Sex Female 12:01 PM POSTPARTUM NURSE Gender Identity Not on file Sexual Orientation Not on file Obstetrics History Last Filed Vital Signs Vital Sign Reading Time Taken Comments Blood Pressure 118/88 10/19/2024 2:00 PM CDT Pulse 121 10/19/2024 2:00 PM CDT Temperature 36.7 C (98 F) 10/19/2024 2:00 PM CDT Respiratory Rate 20 10/19/2024 2:00 PM CDT Oxygen Saturation 99% 10/19/2024 2:00 PM CDT Inhaled Oxygen Concentration - - Weight 111.6 kg (246 lb) 10/19/2024 2:00 PM CDT Height 157.5 cm (5' 2 ) 10/19/2024 2:00 PM CDT Body Mass Index 44.99 10/19/2024 2:00 PM CDT Plan of Treatment Health Maintenance Due Date Last Done Comments Cervical Cancer Screening 1994 Depression Screening 1994 Hepatitis C Screening 1994 Varicella Vaccines (1 of 2 - 13+ 2-dose series) 2007 Regular Well Visit/Exam 18-64 2012 Covid-19 Vaccine ( season) 2024 07/04/2021, 09/22/2020, 08/25/2020 Influenza Vaccine (Season Ended) 2025 DTaP/Tdap/Td Vaccine (9 - Td or Tdap) 12/15/2025 12/16/2015, 12/15/2014, 03/21/2009, Additional history exists Hepatitis B Screening Completed 03/11/1995 , 1994, 1994 HPV Vaccines Aged Out No longer eligi ble based on patient's age to complete this topic Pneumococcal vaccine <65 Aged Out No longer eligible based on patient's age to complete this topic Procedures Procedure Name Priority Date/Time Associated Diagnosis Comments XR CHEST PA LATERAL 2 VIEWS Schedule TIMBO, Read TIMBO (Appt Today, Awaiting Results) 09/30/2024 11:18 AM POSTPARTUM NURSE Influenza A POC INFLUENZA A/B, COVID-19 ANTIGEN Routine 09/30/2024 10:47 AM POSTPARTUM NURSE Influenza A from Last 3 Months Results * XR Chest Pa Lateral 2 Views (09/30/2024 11:18 AM POSTPARTUM NURSE) Anatomical Region Laterality Modality Body, Chest N/A Digital Radiogra phy 09/30/2024 1:13 PM POSTPARTUM NURSE Narrative 09/30/2024 1:14 PM POSTPARTUM NURSE EXAM DESCRIPTION: XR CHEST PA LATERAL 2 VIEWS REASON FOR STUDY: Cough. The patient complains of cough for a few weeks, worsening over time. Influenza +. Non-smoker. TECHNIQUE: 2 radiographic view(s) of the chest. COMPARISON: None FINDINGS: LUNGS: No focal opacity, pleural effusion, or pneumothorax. HEART/MEDIASTINUM: Cardiac silhouette normal in size. Mediastinal and hilar contours appear normal. LINES/TUBES: None. BONES: No acute osseous abnormality. IMPRESSION: No acute cardiopulmonary abnormality. THIS IS AN ELECTRONICALLY VERIFIED FINAL REPORT 09/30/2024 1:14 PM - Electronically signed by Gilma Kaur M.D. LD T: Report ID: [id number] Reading Location: [place] [address] Procedure Note Gilma Kaur MD - 09/30/2024 EXAM DESCRIPTION: XR CHEST PA LATERAL 2 VIEWS REASON FOR STUDY: Cough. The patient complains of cough for a few weeks, worsening over time. Influenza +. Non-smoker. TECHNIQUE: 2 radiographic view(s) of the chest. COMPARISON: None FINDINGS: LUNGS: No focal opacity, pleural effusion, or pneumothorax. HEART/MEDIASTINUM: Cardiac silhouette normal in size. Mediastinal andhilar contours appear normal. LINES/TUBES: None. BONES: No acute osseous abnormality. IMPRESSION: No acute cardiopulmonary abnormality. THIS IS AN ELECTRONICALLY VERIFIED FINAL REPORT 09/30/2024 1:14 PM - Electronically signed by Gilma Kaur M.D. LD T: Report ID: [id number] Reading Location: [place] [address] Tessy DELGADO IMG XR PROCEDURES Final Result * (ABNORMAL) POC Influenza A/B, COVID-19 antigen (09/30/2024 10:47 AM POSTPARTUM NURSE) Influenza A Ag, POC Positive(A) Negative [facility] Influenza B Ag, POC Negative Negative [facility] COVID-19 Ag POC Presumptive Negative Presumptive Negative, Invalid [facility] Nasal 09/30/2024 10:4 7 AM POSTPARTUM NURSE Tessy DELGADO POINT OF CARE TEST ORDER ELLEN Final Result [facility] [address] [place] [address], [facility] from Last 3 Months Insurance [facility] IDPA Care Teams Pantograph Machine Set Up Operator Relationship Specialty Start Date End Date Samy Reaves MD PCP - General Internal Medicine 07/01/23
--- OUTSIDE RECORDS SUMMARY | 2024-12-11 16:33 | XMS_ITS | Referral Summary ---
Author Organization [facility] [address] Address [address] [place] [address] Care Team Providers Care Sales And Leasing Agent Name Role Phone Samy Reaves MD Primary Care Provider [phone] Encounters Date Type Department Care Team Description 10/19/2024 2:00 PM CDT Office Visit [facility] Medical Group Convenient Care at [address] [phone] Tessy Mann PA Acute cough (Primary Dx) 09/30/2024 11:15 AM NATUROPATHIC ONCOLOGY PROVIDER Ancillary Procedure [facility] Medical Group Imaging at [address] [phone] Influenza A 09/30/2024 10:45 AM NATUROPATHIC ONCOLOGY PROVIDER Office Visit [facility] Medical [facility] Convenient Care at [address] [phone] Tessy Mann PA Influenza A (Primary Dx) from Last 3 Months Allergies No known active allergies Medications escitalopram [...] (10/19/2024): 11/22/2014 Supervision of high risk in [facility] 11/22/2014 Overview (10/19/2024): Datinw doc scan PNL's requested GCT 84 Social History Tobacco Use Types Packs/Day Years Used Date Smoking Tobacco: Never Smokeless Tobacco: Never Tobacco Cessation:Counseling Given: Not Answered Comments No Sex and Gender Information Value Date Recorded Sex Assigned at Not on file Legal Sex Female 12:01 PM NATUROPATHIC ONCOLOGY PROVIDER Gender Identity Not on file Sexual Orientation Not on file Last Filed Vital Signs Vital Sign Reading [...] 10/19/2024 2:00 PM CDT Plan of Treatment Not on file Procedures Procedure Name Priority Date/Time Associated Diagnosis Comments XR CHEST PA LATERAL 2 VIEWS Schedule TIMBO, Read TIMBO (Appt Today, Awaiting Results) 09/30/2024 11:18 AM NATUROPATHIC ONCOLOGY PROVIDER Influenza A POC INFLUENZA A/B, COVID-19 ANTIGEN Routine 09/30/2024 10:47 AM NATUROPATHIC ONCOLOGY PROVIDER Influenza A from Last 3 Months Results * XR Chest Pa Lateral 2 Views (09/30/2024 11:18 AM NATUROPATHIC ONCOLOGY PROVIDER) Anatomical Region Laterality Modality Body, Chest N/A Digital Radiogra phy 09/30/2024 1:13 PM NATUROPATHIC ONCOLOGY PROVIDER Narrative 09/30/2024 1:14 PM NATUROPATHIC ONCOLOGY PROVIDER EXAM DESCRIPTION: XR CHEST PA LATERAL 2 [...] 1:14 PM - Electronically signed by Gilma CHÁVEZ T: Report ID: [id number] Reading Location: [id number] Procedure Note Gilma Kaur MD - 09/30/2024 [...] Gilma Kaur M.D. LD T: Report ID: [id number] Reading Location: [id number] Tessy DELGADO IMG XR PROCEDURES Final Result * (ABNORMAL) POC Influenza A/B, COVID-19 antigen (09/30/2024 10:47 AM NATUROPATHIC ONCOLOGY PROVIDER) Influenza A Ag, POC Positive(A) Negative [facility] Influenza B Ag, POC Negative Negative [facility] COVID-19 Ag POC Presumptive Negative Presumptive Negative, Invalid [facility] Nasal 09/30/2024 10:4 7 AM NATUROPATHIC ONCOLOGY PROVIDER Tessy DELGADO POINT OF CARE TEST ORDER ELLEN Final Result [facility] [place] [address], [facility] from Last 3 Months Insurance [facility] IDND [employer] [facility] IDPA Care Teams Sales And Leasing Agent Relationship Specialty Start Date End Date Samy Reaves MD PCP - General Internal Medicine 07/01/23
--- OUTSIDE RECORDS SUMMARY | 2024-12-11 16:33 | XMS_ITS | Clinical Summary ---
Author Organization [facility] Address [address] [place] [address] Care Team Providers Care Rn Icu Name Role Phone Samy Reaves MD Primary Care Provider [phone] Source Comments [facility],non-owned Affiliates and Associated Physician Practices is amultiple site organization consisting of ambulatory clinics and hospital sitesin [place], [place], [place] and [place]. This disclosure is being madepursuant to the Care Everywhere program and may not contain all information available regarding this patient. Last updated 18.[facility] Allergies No known active allergies Medications * Be aware that medications may not be up to date on this document. Alwaysverify current medications with the patient. Nokvfres-Dqk-Aw -FA ( VITAMIN WITH IRON) tablet Take 1 Tab by mouth once daily. 90 Tab 3 12/15/2014 Active lanolin (LANOLIN) ointment Apply to affected area as needed (Sore or cracked nipples.). 1 g 1 12/15/2014 Active ibuprofen (MOTRIN) 600 MG tablet Take 1 Tab by mouth every 6 hours as needed for Pain. 60 Tab 0 12/15/2014 Active docusate sodium (COLACE) 100 MG capsule Take 1 Cap by mouth 2 times daily. 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 Rh negative state in antepartum period 5 Overview (11/22/2014): Fetus Rh- Supervision of high risk in third trim pedro 11/22/2014 Overview (11/22/2014): Datinw doc scan PNL's requested GCT 84 Immunizations Immunization Administration Dates Next Due Rho D Immune Globulin 11/23/2014 TDAP (7yrs+) 12/15/2014 Social History Tobacco Use Types Packs/Day Years Used Date Smoking Tobacco: Never Alcohol Use Standard Drinks/Week Comments No 0 (1 standard drink = 0.6 oz pur e alcohol) Comments No Sex and Gender Information Value Date Recorded Sex Assigned at Not on file Legal Sex Female 1:46 AM CDT Gender Identity Not on file Sexual Orientation Not on file Last Filed Vital Signs Vital Sign Reading Time Taken Comments Blood Pressure 96/50 12/15/2014 7:30 AM CDT Pulse 73 12/15/2014 7:30 AM CDT Temperature 36.8 C (98.3 F) 12/15/2014 7:30 AM CDT Respiratory Rate 18 12/15/2014 7:30 AM CDT Oxygen Saturation 99% 12/15/2014 7:30 AM CDT Inhaled Oxygen Concentration - - Weight 71.8 kg (158 lb 6.4 oz) 12/11/2014 12:25 PM CDT Height 157.5 cm (5' 2 ) 12/11/2014 12:25 PM CDT Body Mass Index 28.97 12/11/2014 12:25 PM CDT Plan of Treatment Health Maintenance Due Date Last Done Comments HIV SCREENING 2009 HEPATITIS C SCREENING 09/02/2012 HEPATITIS B VACCINE (1 of 3 - 19+ 3-dose series) 2013 COVID-19 VACCINE (2023-2 5 season) 2024 DEPRESSION SCREENING 08/11/2024 DTAP/TDAP/TD VACCINES (2 - T d or Tdap) 12/15/2024 12/15/2014 INFLUENZA VACCINE (Season Ended) 2025 ZOSTER VACCINE (1 of 2) 2044 HIB VACCINE Aged Out No longer eligi ble based on patient's age to complete this topic HPV VACCINE Aged Out No longer eligi ble based on patient's age to complete this topic MENINGOCOCCAL (Group B) VACC INE SHARED DECISION-MAKING Aged Out No longer eligibl e based on patient's age to complete this topic MENINGOCOCCAL GROUPS A/C/Y/W VACCINE Aged Out No longer eligible b ased on patient's age to complete this topic PNEUMOCOCCAL VACCINE Aged Out No long er eligible based on patient's age to complete this topic Insurance ANTHEM Advance Directives * Full Code (Latest Code Status on File) Date Activated Date Inactivated Comments 12/13/2014 4:06 AM 12/15/2014 7:43 PM * Full Code Date Activated Date Inactivated Comments 11/22/2014 4:06 AM 12/13/2014 4:06 AM Care Teams Rn Icu Relationship Specialty Start Date End Date Samy Reaves MD [address] [place] [address] PCP - General Internal Medicine 11/22/14
== END 2024-12-11 12:34 | disposition home or self-care (01) ==
LOC: ANHLAB 12:38
PROVIDERS: PCP Internal Medicine; Visit Provider Obstetrics & Gynecology
DX: Z01.818 Encounter for other preprocedural examination (principal); R10.2 Pelvic and perineal pain
CPT/HCPCS: 36415; 85025; 86850; 86880; 86900; 86901; 86902

== ENCOUNTER 2024-12-17 00:42 | Day surgery (SDC) | payer OTHER, MEDICAID, SELFPAY ==
[2024-12-07 12:50] VITALS: BMI 43.9
--- NOTE | 2024-12-07 12:56 | PC.NURSE ---
Report to the Outpatient Waiting Room, entrance under the green pavilion located off [facility], at time _0600_ on date _[id number]_. Planned Procedure Time: _0730_.? Time changes happen often and if your time is changed the preop area will call you the afternoon before. - You and your visitor will be asked to self-screen and do not enter if you have any COVID symptoms. Please call surgeon if you need to reschedule. - A mask is optional within the hospital at this time. Patients may have clear liquids (water, carbonated beverages, clear teas, apple juice) until 3 hours prior to surgery with a maximum of 20 ounces. - No food from midnight until time of surgery and no smoking, or chewing tobacco (or any form of nicotine). No chewing gum, candy or mints. Take only the following medications with a SIP of water on the morning of surgery: __None___ DO NOT STOP ANY OF YOUR OTHER PRESCRIPTION MEDICATIONS PRIOR TO SURGERY EXCEPT THE FOLLOWING Hold all vitamins and supplements for 3 days per anesthesiologist. Medications to discontinue per physician Date to take last dose Please no make-up, nail bahraini, hairspray, perfume, deodorant, or body powder the day of surgery.? No jewelry (including any body piercings) or valuables the day of surgery, leave them at home.? Please take a shower or bath the night before, or the morning of, surgery with an antibacterial soap.? Wear comfortable, loose fitting clothing. - Jewelry must be removed prior to entering the operating room.? Rings and piercings that are not removed may be cut off. - The hospital will not accept responsibility for valuables.? - Please leave all valuables, including medications, at home the day of surgery. If you are going home after surgery, a licensed hazardous materials tanker driver must drive you home.? - NO public transportation without another adult if you receive anesthesia. - We recommend that an adult stay with you for 24 hours following discharge. - We also recommend that you do not drive, make important decision, drink alcoholic beverages, or take any drugs that were not prescribed by your health care provider for at least 24 hours after your discharge time. Follow any additional instructions given to you from your surgeon. Telephone instructions given to __Judy__and asked if any additional questions and then verbalized understanding. Patient advised to call surgeon office or pre surgery nurse liaison [phone] if any additional questions.
--- NOTE | 2024-12-14 12:24 | PM.IMHP ---
H&P: HPI History of Present Illness Date/Time: 12/14/24 12:24 Chief Complaint: Pelvic congestion/pelvic pain/second-degree prolapse Narrative: 29-year-old multiparous patient admitted for robotic hysterectomy bilateral salpingectomy secondary to pelvic pain and severe pelvic congestion she also has a second-degree prolapse. Ultrasound shows multiple large congested blood vessels. She has tried the therapy without success she understands this will make her permanently infertile. Risks and benefits of this procedure reviewed exclusive , aspiration bleeding transfusion perforation, ureters other with need pain repair. She received the [employer] handout entitled hysterectomy as well as the [facility] handout. She had all questions answered. She asked to proceed Review of Systems Review of Systems: All systems reviewed & are unremarkable except as noted in HPI and below PMFSH Family History Family History Mother Hypertension Son Myoclonic epilepsy Son Autism Social History Social History Smoking status: Never smoker Second hand tobacco smoke exposure: No Alcohol intake: never Substance use: never Substance use type: does not use Lack of Transportation: No Lack of Food: Never True Current Housing: I Have Housing Concerned About Future Housing: No Difficulty Paying Gas/Electric Bills: No Difficulty Paying for Meds: No Currently Unemployed: No Education: High School Diploma/GED Difficulty w/ Childcare or Family Care: No Living arrangements: with family Gender identity (if verbalized by the patient): Female Sexual Orientation (if Verbalized by the Patient): Straight or Heterosexual Spiritual care concerns: No Meds Home Medications and Allergies Home Medications ?Medication ?Instructions ?Recorded ?Confirmed ?Type rizatriptan 10 mg disintegrating 10 mg PO ONCE PRN migraines 01/18/23 12/07/24 History tablet Excedrin Migraine 2 tab-cap PO PRN PRN migraines 03/12/23 12/07/24 History Allergies Allergy/AdvReac Type Severity Reaction Status Date / Time No Known Allergies Allergy Unknown Verified 12/07/24 12:48 Exam Const: General: cooperative, healthy appearing and comfortable Nutritional Appearance: overweight Orientation/consciousness: oriented to person, oriented to place and oriented to time HENMT: Head: normal to inspection Resp: Effort & Inspection: normal respiratory effort Cardio: Rate: regular rate Rhythm: regular rhythm Heart sounds: S1 normal heart sound present and S2 normal heart sound present GI: Inspection: normal to inspection : External Female Exam: normal external appearance Speculum Exam - Vagina: normal appearance of the vagina Speculum Exam - Cervix: normal appearance of the cervix (Second-degree prolapse) Bimanual exam- vagina & uterus: boggy, enlarged and Uterine tenderness Bimanual Exam- Adnexa, other: normal adnexae Assessment and Plan Assessment and plan (1) Uterine prolapse: Code(s): N81.4 - Uterovaginal prolapse, unspecified Status: Acute (2) Pelvic congestion: Code(s): N94.89 - Other specified conditions associated with female genital organs and menstrual cycle Status: Acute (3) Pelvic pain: Code(s): R10.2 - Pelvic and perineal pain Status: Acute Plan Will proceed with robotic total vaginal hysterectomy and bilateral salpingectomy
[2024-12-17] VITALS (8 sets, daily range): BP systolic 132–143; BP diastolic 84–95; PULSE 99–108; RESP 14–22; TEMP 36.2–36.6; O2SAT 96–100
--- OUTSIDE RECORDS SUMMARY | 2024-12-17 00:45 | XMS_ITS | Referral Summary ---
Author Organization [facility] [address] Address [address] [place] [address] Care Team Providers Care Test Center Manager Name Role Phone Samy Reaves MD Primary Care Provider [phone] Encounters Date Type Department Care Team Description 10/19/2024 2:00 PM CDT Office Visit [facility] Medical [facility] Convenient Care at [address] [phone] Tessy Mann PA Acute cough (Primary Dx) 09/30/2024 11:15 AM CROSS TIE CUTTER Ancillary Procedure [facility] Medical Group Imaging at [address] [phone] Influenza A 09/30/2024 10:45 AM CROSS TIE CUTTER Office Visit [facility] Medical [facility] Convenient Care at [address] [phone] Tessy Mann PA Influenza A (Primary Dx) [...] (10/19/2024): 11/22/2014 Supervision of high risk in [facility] 11/22/2014 Overview (10/19/2024): Datinw doc scan PNL's requested GCT 84 Social History Tobacco Use Types Packs/Day Years Used Date Smoking Tobacco: Never Smokeless Tobacco: Never Tobacco Cessation:Counseling Given: Not Answered Comments No Sex and Gender Information Value Date Recorded Sex Assigned at Not on file Legal Sex Female 12:01 PM CROSS TIE CUTTER Gender Identity Not on file Sexual Orientation [...] (Appt Today, Awaiting Results) 09/30/2024 11:18 AM CROSS TIE CUTTER Influenza A POC INFLUENZA A/B, COVID-19 ANTIGEN Routine 09/30/2024 10:47 AM CROSS TIE CUTTER Influenza A from Last 3 Months Results * XR Chest Pa Lateral 2 Views (09/30/2024 11:18 AM CROSS TIE CUTTER) Anatomical Region Laterality Modality Body, Chest N/A Digital Radiogra phy 09/30/2024 1:13 PM CROSS TIE CUTTER Narrative 09/30/2024 1:14 PM CROSS TIE CUTTER EXAM DESCRIPTION: XR CHEST PA LATERAL 2 [...] signed by Gilma CHÁVEZ T: Report ID: [id number] Reading Location: [id number] Procedure Note Gilma Kaur MD - 09/30/2024 [...] Gilma Kaur M.D. LD T: Report ID: [id number] Reading Location: [id number] Tessy DELGADO IMG XR PROCEDURES Final Result * (ABNORMAL) POC Influenza A/B, COVID-19 antigen (09/30/2024 10:47 AM CROSS TIE CUTTER) Influenza A Ag, POC Positive(A) Negative [facility] Influenza B Ag, POC Negative Negative [facility] COVID-19 Ag POC Presumptive Negative Presumptive Negative, Invalid [facility] Nasal 09/30/2024 10:4 7 AM CROSS TIE CUTTER Tessy DELGADO POINT OF CARE TEST ORDER ELLEN Final Result [facility] [place] [address], [facility] from Last 3 Months Insurance [facility] [employer] [facility] IDPA Care Teams Test Center Manager Relationship Specialty Start Date End Date Samy Reaves MD PCP - General Internal Medicine 07/01/23
--- OUTSIDE RECORDS SUMMARY | 2024-12-17 00:45 | XMS_ITS | Clinical Summary ---
Author Organization [facility] Address [address] [place] [address] Care Team Providers Care Gatekeeper Name Role Phone Samy Reaves MD Primary Care Provider [phone] Source Comments [facility],non-owned Affiliates and Associated Physician Practices is amultiple site organization consisting of ambulatory clinics and hospital sitesin [place], [place], [place] and [place]. This disclosure is being madepursuant to the Care Everywhere program and may not contain all information available regarding this patient. Last updated 18.[facility] Allergies No known active allergies Medications * Be aware that medications may not be up to date on this document. Alwaysverify current medications with the patient. Txmyykgm-Lvl-Vx -FA ( VITAMIN WITH IRON) tablet Take [...] 4:06 AM 12/13/2014 4:06 AM Care Teams Gatekeeper Relationship Specialty Start Date End Date Samy Reaves MD [address] [place] [address] PCP - General Internal Medicine 11/22/14
--- OUTSIDE RECORDS SUMMARY | 2024-12-17 00:45 | XMS_ITS | Clinical Summary ---
Author Organization [facility] [employer] Address [address] [place] [address] Care Team Providers Care Railroad Wheels And Axles Inspector Name Role Phone Samy Reaves MD Primary Care Provider [phone] Allergies No known active allergies Medications escitalopram [...] Description 10/19/2024 2:00 PM CDT Office Visit [facility] Medical Group Convenient Care at [address] [phone] Tessy Mann PA Acute cough (Primary Dx) 09/30/2024 11:15 AM TEMPERING OVEN OPERATOR Ancillary Procedure [facility] Imaging at [address] [phone] Influenza A 09/30/2024 10:45 AM TEMPERING OVEN OPERATOR Office Visit [facility] Medical [facility] Convenient Care at [address] [phone] Tessy Mann PA Influenza A (Primary Dx) [...] on file Legal Sex Female 12:01 PM TEMPERING OVEN OPERATOR Gender Identity Not on file Sexual Orientation [...] (Appt Today, Awaiting Results) 09/30/2024 11:18 AM TEMPERING OVEN OPERATOR Influenza A POC INFLUENZA A/B, COVID-19 ANTIGEN Routine 09/30/2024 10:47 AM TEMPERING OVEN OPERATOR Influenza A from Last 3 Months Results * XR Chest Pa Lateral 2 Views (09/30/2024 11:18 AM TEMPERING OVEN OPERATOR) Anatomical Region Laterality Modality Body, Chest N/A Digital Radiogra phy 09/30/2024 1:13 PM TEMPERING OVEN OPERATOR Narrative 09/30/2024 1:14 PM TEMPERING OVEN OPERATOR EXAM DESCRIPTION: XR CHEST PA LATERAL 2 [...] Gilma Kaur M.D. LD T: Report ID: [id number] Reading Location: [place] [address] Procedure Note Gilma Kaur MD - 09/30/2024 [...] Gilma Kaur M.D. LD T: Report ID: [id number] Reading Location: [place] [address] Tessy DELGADO IMG XR PROCEDURES Final Result * (ABNORMAL) POC Influenza A/B, COVID-19 antigen (09/30/2024 10:47 AM TEMPERING OVEN OPERATOR) Influenza A Ag, POC Positive(A) Negative [facility] Influenza B Ag, POC Negative Negative [facility] COVID-19 Ag POC Presumptive Negative Presumptive Negative, Invalid [facility] Nasal 09/30/2024 10:4 7 AM TEMPERING OVEN OPERATOR Tessy DELGADO POINT OF CARE TEST ORDER ELLEN Final Result [facility] [address] [place] [address], [facility] from Last 3 Months Insurance [facility] IDPA Care Teams Railroad Wheels And Axles Inspector Relationship Specialty Start Date End Date Samy Reaves MD PCP - General Internal Medicine 07/01/23
--- NOTE | 2024-12-17 04:53 | WPDHPUPDATE1 ---
History and Physical Update Update Date/Time: 12/17/24 04:53 History and Physical has been reviewed, including an updated exam of the patient. There are NO changes in the patient's condition. Risks, benefits, and alternatives have been discussed and questions answered. Patient agrees to proceed with procedure.
[2024-12-17 06:23] LABS: BEDSIDEPREGUCG Negative (Negative)
[2024-12-17] MEDS: LACTATED RINGERS 1,000 ML 30 ML IV CONT ×2 (06:40→08:42)
[2024-12-17] MEDS: KETOROLAC 15 MG/ML VIAL (*BKC) IV PUSH (06:42)
--- NOTE | 2024-12-17 07:13 | P.PNAN_ITS ---
Anes - Initial Pre Proc Eval Procedure: Operation Date: 12/17/24 07:30 Proposed Procedures p Robotic Assisted Total Vaginal Hysterectomy with Bilateral Salpingectomy - Reji Prather MD Date/Time: 12/17/24 07:13 Surgeon: Reji Prather MD Pre Op Diagnosis: pelvic congestion, pelvic pain, Patient Data Age: 29 Gender: F Height: 1.57 m Weight: 110.4 kg Last Vital Signs Temp 98 F 12/17/24 06:15 Pulse 99 12/17/24 06:15 Resp 18 12/17/24 06:15 BP 139/94 H 12/17/24 06:15 Pulse Ox 99 12/17/24 06:15 O2 Del Method Room Air 12/17/24 06:15 Allergies Allergy/AdvReac Type Severity Reaction Status Date / Time No Known Allergies Allergy Unknown Verified 12/17/24 06:18 Home Medications ?Medication ?Instructions ?Recorded ?Confirmed ?Type rizatriptan 10 mg disintegrating 10 mg PO ONCE PRN migraines 01/18/23 12/17/24 History tablet Excedrin Migraine 2 tab-cap PO PRN PRN migraines 03/12/23 12/17/24 History hydrocodone 5 mg-acetaminophen 325 1 tablet PO Q4H PRN pain #20 tabs 12/17/24 Rx mg tablet Laboratory Tests 12/17/24 06:15 POC Urine HCG, Qual Negative (Negative) Patient hx anesthesia problems: none Family hx anesthesia problems: none Results Review: All pre-operative results and documents have been reviewed as part of the pre- operative evaluation. [facility] Family History Family History Mother Hypertension Son Myoclonic epilepsy Son Autism Social History Social History Smoking status: Never smoker Second hand tobacco smoke exposure: No Alcohol intake: never Substance use: never Substance use type: does not use Lack of Transportation: No Lack of Food: Never True Current Housing: I Have Housing Concerned About Future Housing: No Difficulty Paying Gas/Electric Bills: No Difficulty Paying for Meds: No Currently Unemployed: No Education: High School Diploma/GED Difficulty w/ Childcare or Family Care: No Living arrangements: with family Gender identity (if verbalized by the patient): Female Sexual Orientation (if Verbalized by the Patient): Straight or Heterosexual Spiritual care concerns: No Anes - Eval Final PreProcedure Day of Procedure 12/17/24 07:13 Patient weight: morbidly obese Heart: regular rate and rhythm Lungs: clear to auscultation Airway: Mallampati scale class II Neurological: alert and oriented Last oral intake: >/= 8 hours ASA classification: III Emergent: no Anesthetic plan: proceed Anesthesia type and monitoring: general ETT and standard monitoring Results Review: All pre-operative results and documents have been reviewed as part of the pre-o perative evaluation. Informed Consent: The patient's anesthetic plan and its attendant risks and benefits were discussed with the patient/family/POA. Questions were solicited and answers provided to the satisfaction of the patient/family/POA.
[2024-12-17] MEDS: ceFAZolin 2 GM/D5W 50 ML 2 GM/50 ML BAG IVPB (07:27)
--- NOTE | 2024-12-17 08:26 | P.OP_ITS ---
Procedure Note - Detailed Date of Procedure 12/17/24 Pre-op Diagnosis pelvic congestion, pelvic pain, Post-op Diagnosis Same Procedure Performed Robotic total vaginal hysterectomy bilateral salpingectomy Surgeon Reji Prather MD Anesthesia General Indications 29-year-old female with heavy bleeding pelvic pain pelvic congestion Findings Markedly enlarged uterus with large pelvic congestion. Normal-appearing tubes ovaries Description of Procedure Patient was prepped draped sterile fashion placed in dorsal lithotomy position. Under excellent general trach anesthesia weighted speculum placed in posterior fornix vagina. Anterior lip of the cervix grasped with single-tooth tenaculum. Uterus sounded to 9cm. Serial dilatation fragmented dilators performed followed passes the 9. DORA and the 3. Cold cup. Next the 16 Danish catheter placed in bladder drained clear urine. The weighted speculum and the single-tooth removed. The gloves were changed. Supraumbilical incision made. Weighted Veress needle passed in the abdomen. Abdomen filled with CO2 gas 15mmHg. The 8mm trocar advanced in the abdomen. Downside visualized no injury seen. Patient placed in Trendelenburg 18? and right left lateral quadrant incisions made. 8mm trocars advanced under direct visualization assuring no injury. Right upper quadrant incision made the 8mm trocar advanced under direct visualization again assuring no injury. The robot was docked. Attention was turned to the investment counselor. The left round ligament was grasped, burned, cut. Anteriorly a bladder flap was formed by sharply dissecting the peritoneum and reflecting the bladder caudally away from the cervix uterus the opposite round ligament which was clamped, burned, cut. Next the left fallopian tube was sharply dissected away from the ovarian complex and left attached at its uterine origin. In similar fashion to remove the right fallopian tube it was sharply dissected away from the ovarian complex and left attached to its uterine origin. The utero-ovarian ligament on the left was then skeletonized to conserve the left ovary clamped, burned, cut and brought to level of previously cut round ligament. Similar fashion conserving the right ovary, the utero- ovarian ligament was clamped, burned, cut and brought to the level of previously cut round ligament. Next cardinal broad ligaments on the left were skeletonized clamping burning cutting hugging the cervix uterus to avoid injury until the large tortuous vessels were seen the left these were individually clamped, burned, cut. In similar fashion on the right the cardinal broad ligaments were sharply dissected burning cutting and hugging the cervix and and uterus until the uterine vessels could be seen on the right these as well were markedly enlarged. There were individually clamped, burned, cut. Blanching the uterus was noted that point a colpotomy incision was made. Cervix uterus and tubes removed through the vagina. The vagina then closed with continuous running 0V lock from lateral edge to lateral edge back to midline. Irrigation undertaken until clear and [place] term powder was placed over the raw surface area blood loss was estimated 25cc and all pedicles appeared dry. The robot was undocked. The gas removed from the abdomen. The trocars removed from the abdomen. The incisions closed with 4 Monocryl and glue. The patient was awakened went recovery in satisfactory condition. All sponge, needle, instrument counts were correct. There were no immediate complications noted Estimated Blood Loss 25 Drains No Packing No Pathology Yes Complications No immediate complications Condition Stable Disposition PACU
--- NOTE | 2024-12-17 08:30 | P.DS_ITS ---
DS: Admitting Diagnosis Discharge Date 12/17/2024 Admitting Diagnosis Uterine prolapse/pelvic congestion/pelvic pain DS: Discharge Diagnosis Discharge Diagnosis (1) Pelvic pain: Code(s): R10.2 - Pelvic and perineal pain Status: Acute (2) Uterine prolapse: Code(s): N81.4 - Uterovaginal prolapse, unspecified Status: Acute (3) Pelvic congestion: Code(s): N94.89 - Other specified conditions associated with female genital organs and menstrual cycle Status: Acute DS: Summary Hospital Course Reason for hospitalization: Patient was admitted for robotic total vaginal hysterectomy bilateral salpingectomy on 12/17/2024 Hospital Course: The patient's hospital course unremarkable. She remained afebrile. She was up, voiding without difficulty, eating regular diet, ambulating voiding difficulty and generally without complaints. Time Spent with Patient Time attestation: Total time spent providing and/or coordinating discharge services: Exam Const: General: cooperative, healthy appearing and comfortable Orientation/consciousness: oriented to person, oriented to place and oriented to time Resp: Effort & Inspection: normal respiratory effort Cardio: Rate: regular rate Rhythm: regular rhythm Heart sounds: S1 normal heart sound present and S2 normal heart sound present GI: Inspection: normal to inspection and incision (Wounds are clean dry and intact) DS: Data Data Completed and Pending Pending studies at discharge: Pending at discharge 12/17/24 08:19 Surgical [PTH] Routine Labs on day of discharge: Labs from last 24 hours 12/17/24 06:15 POC Urine HCG, Qual Negative Discharge Plan Discharge Patient Disposition: Home Patient Language: Hungarian Stand Alone Forms: General Discharge Instructions Follow-up/Referrals: Reji Lockett MD [Physician] - Discharge Medications: New hydrocodone-acetaminophen 5-325 mg tablet 1 tablet PO Q4H PRN (Reason: pain) Qty: 20 0RF No Action rizatriptan 10 mg Tablet,Disintegrating 10 mg PO ONCE PRN (Reason: migraines) Rx Instructions: may repeat once after at least 2 hours Excedrin Migraine 2 tab-cap PO PRN PRN (Reason: migraines)
[2024-12-17] MEDS: fentaNYL CITRATE INJ (*CRX) 100 MCG/2 ML VIAL 25 MCG IV PUSH ×6 (08:48→09:09)
--- NOTE | 2024-12-17 10:04 | PC.NURSE ---
This patient, Judy Vela, was received from PACU via stretcher on 12/17/24 at 1004. Patient/family oriented to unit policies and routines.
[2024-12-17] MEDS: BISACODYL 10 MG SUPPOSITORY RECTAL (11:54)
[2024-12-17] MEDS: oxyCODONE HCL (*CRX) 5 MG TAB IR 10 MG PO (12:42)
[2024-12-17] MEDS: SIMETHICONE 80 MG TAB.CHEW PO (12:42)
[2024-12-17] MEDS: ENOXAPARIN 40 MG/0.4 ML SYRINGE SUB-Q (13:39)
== END 2024-12-17 13:50 | disposition home or self-care (01) ==
LOC: ANHSURGERY 05:57 → ANHOB2 10:10
PROVIDERS: PCP Internal Medicine; Visit Provider Obstetrics & Gynecology
PROC: (CPT 58552; principal; 2024-12-17 07:30)
DX: N94.89 Other specified conditions associated with female genital organs and menstrual cycle (principal); N72 Inflammatory disease of cervix uteri; E66.01 Morbid (severe) obesity due to excess calories; Z68.41 Body mass index [BMI] 40.0-44.9, adult; Z79.891 Long term (current) use of opiate analgesic
CPT/HCPCS: 58552; S2900; 88307; 99199; A9270; J0690; J1100; J1650; J1885; J2250; J2405; J2704; J3010; J7120

== ENCOUNTER 2024-12-18 17:23 | Emergency (ER) | payer OTHER, MEDICAID, SELFPAY ==
--- NOTE | ~2024-12-18 | CT_ITS ---
CT abdomen pelvis w con Ordering provider: Franklyn Cheng MD History: 29 years Female with . post operative pain . Comparison: None. Technique: CT abdomen and pelvis with IV and without oral contrast. Automated exposure control and it erative reconstruction technique were employed. The dose-length product was 1539.19 mGy-cm. 100 mL Om nipaque 350 was given IV. Findings: VISUALIZED LOWER CHEST: Normal. Dependent atelectatic changes. UPPER ABDOMINAL ORGANS: Liver: Normal. Gallbladder: Normal. Spleen: Normal. Stomach/duodenum: Normal. Pancreas: Normal. Adrenals: Normal. Kidneys: Normal. PELVIC ORGANS: The bladder is normal. Right ovarian cyst is seen measuring 3.4 x 2.1 cm. BOWEL AND MESENTERY: Colon: No evidence of diverticulitis.. Normal appendix. Appendix is surrounded by fluid. No thickenin g is seen. Small Bowel: Normal. No obstruction. Peritoneum/mesentery: No free air. Minimal Free fluid is seen in the pelvis and right lower quadrant which may be postoperative... No mesenteric lymphadenopathy. Mesenteric lymph nodes are seen with the largest measures 1.2x 1 cm. RETROPERITONEUM: Normal aorta. No retroperitoneal lymphadenopathy. MUSCULOSKELETAL: Superficial soft tissues: Fat stranding is seen above the umbilicus and in the left anterior abdomina l wall most likely the site of surgery. Clinical correlation advised. Otherwise, The superficial soft tissues are normal. Bones: Normal spine. IMPRESSION: 1. No evidence of appendicitis, diverticulitis or intestinal obstruction. 2. Fluid in the pelvis and right lower quadrant which may be postoperative. 3. Right ovarian cyst. 4. Fat stranding in the supraumbilical and left anterior abdominal wall which may be postoperative. Clinical correlation and further evaluation advised. Reviewed, dictated and finalized at location A.
--- OUTSIDE RECORDS SUMMARY | 2024-12-18 17:25 | XMS_ITS | Clinical Summary ---
Author Organization [facility] [employer] Address [address] [place] [address] Care Team Providers Care Metrology Engineer Name Role Phone Samy Reaves MD Primary Care Provider [phone] Allergies No known active allergies Medications escitalopram [...] Description 10/19/2024 2:00 PM CDT Office Visit [facility] Medical Group Convenient Care at [address] [phone] Tessy Mann PA Acute cough (Primary Dx) 09/30/2024 11:15 AM VIDEOTAPE SALES REPRESENTATIVE Ancillary Procedure [facility] Imaging at [address] [phone] Influenza A 09/30/2024 10:45 AM VIDEOTAPE SALES REPRESENTATIVE Office Visit [facility] Medical [facility] Convenient Care at [address] [phone] Tessy Mann PA Influenza A (Primary Dx) [...] on file Legal Sex Female 12:01 PM VIDEOTAPE SALES REPRESENTATIVE Gender Identity Not on file Sexual Orientation [...] (Appt Today, Awaiting Results) 09/30/2024 11:18 AM VIDEOTAPE SALES REPRESENTATIVE Influenza A POC INFLUENZA A/B, COVID-19 ANTIGEN Routine 09/30/2024 10:47 AM VIDEOTAPE SALES REPRESENTATIVE Influenza A from Last 3 Months Results * XR Chest Pa Lateral 2 Views (09/30/2024 11:18 AM VIDEOTAPE SALES REPRESENTATIVE) Anatomical Region Laterality Modality Body, Chest N/A Digital Radiogra phy 09/30/2024 1:13 PM VIDEOTAPE SALES REPRESENTATIVE Narrative 09/30/2024 1:14 PM VIDEOTAPE SALES REPRESENTATIVE EXAM DESCRIPTION: XR CHEST PA LATERAL 2 [...] Gilma Kaur M.D. LD T: Report ID: [id number] Reading Location: [place] [address] Procedure Note Gilma Kaur MD - 09/30/2024 [...] Gilma Kaur M.D. LD T: Report ID: [id number] Reading Location: [place] [address] Tessy DELGADO IMG XR PROCEDURES Final Result * (ABNORMAL) POC Influenza A/B, COVID-19 antigen (09/30/2024 10:47 AM VIDEOTAPE SALES REPRESENTATIVE) Influenza A Ag, POC Positive(A) Negative [facility] Influenza B Ag, POC Negative Negative [facility] COVID-19 Ag POC Presumptive Negative Presumptive Negative, Invalid [facility] Nasal 09/30/2024 10:4 7 AM VIDEOTAPE SALES REPRESENTATIVE Tessy DELGADO POINT OF CARE TEST ORDER ELLEN Final Result [facility] [address] [place] [address], [facility] from Last 3 Months Insurance [facility] IDPA Care Teams Metrology Engineer Relationship Specialty Start Date End Date Samy Reaves MD PCP - General Internal Medicine 07/01/23
--- OUTSIDE RECORDS SUMMARY | 2024-12-18 17:25 | XMS_ITS | Referral Summary ---
Author Organization [facility] [employer] Address [address] [place] [address] Care Team Providers Care Professor Of Languages Name Role Phone Samy Reaves MD Primary Care Provider [phone] Encounters Date Type Department Care Team Description 10/19/2024 2:00 PM CDT Office Visit [facility] Medical Group Convenient Care at [address] [phone] Tessy Mann PA Acute cough (Primary Dx) 09/30/2024 11:15 AM MANAGER PACU Ancillary Procedure [facility] Medical Group Imaging at [address] [phone] Influenza A 09/30/2024 10:45 AM MANAGER PACU Office Visit [facility] Medical [facility] Convenient Care at [address] [phone] Tessy Mann PA Influenza A (Primary Dx) [...] (10/19/2024): 11/22/2014 Supervision of high risk in [facility] 11/22/2014 Overview (10/19/2024): Datinw doc scan PNL's requested GCT 84 Social History Tobacco Use Types Packs/Day Years Used Date Smoking Tobacco: Never Smokeless Tobacco: Never Tobacco Cessation:Counseling Given: Not Answered Comments No Sex and Gender Information Value Date Recorded Sex Assigned at Not on file Legal Sex Female 12:01 PM MANAGER PACU Gender Identity Not on file Sexual Orientation [...] (Appt Today, Awaiting Results) 09/30/2024 11:18 AM MANAGER PACU Influenza A POC INFLUENZA A/B, COVID-19 ANTIGEN Routine 09/30/2024 10:47 AM MANAGER PACU Influenza A from Last 3 Months Results * XR Chest Pa Lateral 2 Views (09/30/2024 11:18 AM MANAGER PACU) Anatomical Region Laterality Modality Body, Chest N/A Digital Radiogra phy 09/30/2024 1:13 PM MANAGER PACU Narrative 09/30/2024 1:14 PM MANAGER PACU EXAM DESCRIPTION: XR CHEST PA LATERAL 2 [...] signed by Gilma CHÁVEZ T: Report ID: [id number] Reading Location: [id number] Procedure Note Gilma Kaur MD - 09/30/2024 [...] Gilma Kaur M.D. LD T: Report ID: [id number] Reading Location: [id number] Tessy DELGADO IMG XR PROCEDURES Final Result * (ABNORMAL) POC Influenza A/B, COVID-19 antigen (09/30/2024 10:47 AM MANAGER PACU) Influenza A Ag, POC Positive(A) Negative [facility] Influenza B Ag, POC Negative Negative [facility] COVID-19 Ag POC Presumptive Negative Presumptive Negative, Invalid [facility] Nasal 09/30/2024 10:4 7 AM MANAGER PACU Tessy DELGADO POINT OF CARE TEST ORDER ELLEN Final Result [facility] [place] [address], [facility] from Last 3 Months Insurance [facility] IDND AETNA [facility] IDPA Care Teams Professor Of Languages Relationship Specialty Start Date End Date Samy Reaves MD PCP - General Internal Medicine 07/01/23
--- OUTSIDE RECORDS SUMMARY | 2024-12-18 17:25 | XMS_ITS | Clinical Summary ---
Author Organization [facility] [employer] Address [address] [place] [address] Care Team Providers Care Grinder Mill Operator Name Role Phone Samy Reaves MD Primary Care Provider [phone] Source Comments [facility],non-owned Affiliates and Associated Physician Practices is amultiple site organization consisting of ambulatory clinics and hospital sitesin [place], [place], [place] and [place]. This disclosure is being madepursuant to the Care Everywhere program and may not contain all information available regarding this patient. Last updated 18.[facility] Allergies No known active allergies Medications * Be aware that medications may not be up to date on this document. Alwaysverify current medications with the patient. Ikricpyb-Hgy-Tf -FA ( VITAMIN WITH IRON) tablet Take [...] 4:06 AM 12/13/2014 4:06 AM Care Teams Grinder Mill Operator Relationship Specialty Start Date End Date Samy Reaves MD [address] [place] [address] PCP - General Internal Medicine 11/22/14
[2024-12-18 17:27] VITALS: BP 150/98; PULSE 119; RESP 16; TEMP 36.4; O2SAT 100
[2024-12-18 18:37] VITALS: BP 166/100; PULSE 100; RESP 18; O2SAT 100
[2024-12-18] MEDS: LACTATED RINGERS 1,000 ML 999 ML IV CONT (18:37)
--- OUTSIDE RECORDS SUMMARY | 2024-12-18 18:37 | XMS_ITS | Clinical Summary ---
Author Organization [facility] [employer] Address [address] [place] [address] Care Team Providers Care Grad Intern Name Role Phone Samy Reaves MD Primary Care Provider [phone] Source Comments [facility] [employer],non-owned Affiliates and Associated Physician Practices is amultiple site organization consisting of ambulatory clinics and hospital sitesin [place], [place], [place] and [place]. This disclosure is being madepursuant to the Care Everywhere program and may not contain all information available regarding this patient. Last updated 18.[facility] [employer] Allergies No known active allergies Medications * Be aware that medications may not be up to date on this document. Alwaysverify current medications with the patient. Lwjbelvh-Txd-Re -FA ( VITAMIN WITH IRON) tablet Take [...] 4:06 AM 12/13/2014 4:06 AM Care Teams Grad Intern Relationship Specialty Start Date End Date Samy Reaves MD [address] [place] [address] PCP - General Internal Medicine 11/22/14
--- OUTSIDE RECORDS SUMMARY | 2024-12-18 18:37 | XMS_ITS | Clinical Summary ---
Author Organization [facility] [employer] Address [address] [place] [address] Care Team Providers Care Ending Machine Operator Name Role Phone Samy Reaves MD Primary Care Provider [phone] Allergies No known active allergies Medications escitalopram [...] Description 10/19/2024 2:00 PM CDT Office Visit [facility] Medical Group Convenient Care at [address] [phone] Tessy Mann PA Acute cough (Primary Dx) 09/30/2024 11:15 AM STOCK PARTS INSPECTOR Ancillary Procedure [facility] Imaging at [address] [phone] Influenza A 09/30/2024 10:45 AM STOCK PARTS INSPECTOR Office Visit [facility] Medical [facility] Convenient Care at [address] [phone] Tessy Mann PA Influenza A (Primary Dx) [...] on file Legal Sex Female 12:01 PM STOCK PARTS INSPECTOR Gender Identity Not on file Sexual Orientation [...] (Appt Today, Awaiting Results) 09/30/2024 11:18 AM STOCK PARTS INSPECTOR Influenza A POC INFLUENZA A/B, COVID-19 ANTIGEN Routine 09/30/2024 10:47 AM STOCK PARTS INSPECTOR Influenza A from Last 3 Months Results * XR Chest Pa Lateral 2 Views (09/30/2024 11:18 AM STOCK PARTS INSPECTOR) Anatomical Region Laterality Modality Body, Chest N/A Digital Radiogra phy 09/30/2024 1:13 PM STOCK PARTS INSPECTOR Narrative 09/30/2024 1:14 PM STOCK PARTS INSPECTOR EXAM DESCRIPTION: XR CHEST PA LATERAL 2 [...] Gilma Kaur M.D. LD T: Report ID: [id number] Reading Location: [place] [address] Procedure Note Gilma Kaur MD - 09/30/2024 [...] Gilma Kaur M.D. LD T: Report ID: [id number] Reading Location: [place] [address] Tessy DELGADO IMG XR PROCEDURES Final Result * (ABNORMAL) POC Influenza A/B, COVID-19 antigen (09/30/2024 10:47 AM STOCK PARTS INSPECTOR) Influenza A Ag, POC Positive(A) Negative [facility] Influenza B Ag, POC Negative Negative [facility] COVID-19 Ag POC Presumptive Negative Presumptive Negative, Invalid [facility] Nasal 09/30/2024 10:4 7 AM STOCK PARTS INSPECTOR Tessy DELGADO POINT OF CARE TEST ORDER ELLEN Final Result [facility] [address] [place] [address], [facility] from Last 3 Months Insurance [facility] IDPA Care Teams Ending Machine Operator Relationship Specialty Start Date End Date Samy Reaves MD PCP - General Internal Medicine 07/01/23
--- OUTSIDE RECORDS SUMMARY | 2024-12-18 18:37 | XMS_ITS | Referral Summary ---
Author Organization [facility] [employer] Address [address] [place] [address] Care Team Providers Care Mobile Crane Operator Name Role Phone Samy Reaves MD Primary Care Provider [phone] Encounters Date Type Department Care Team Description 10/19/2024 2:00 PM CDT Office Visit [facility] Medical Group Convenient Care at [address] [phone] Tessy Mann PA Acute cough (Primary Dx) 09/30/2024 11:15 AM CAR SALES CONSULTANT Ancillary Procedure [facility] Medical Group Imaging at [address] [phone] Influenza A 09/30/2024 10:45 AM CAR SALES CONSULTANT Office Visit [facility] Medical [facility] Convenient Care at [address] [phone] Tessy Mann PA Influenza A (Primary Dx) [...] (10/19/2024): 11/22/2014 Supervision of high risk in [facility] 11/22/2014 Overview (10/19/2024): Datinw doc scan PNL's requested GCT 84 Social History Tobacco Use Types Packs/Day Years Used Date Smoking Tobacco: Never Smokeless Tobacco: Never Tobacco Cessation:Counseling Given: Not Answered Comments No Sex and Gender Information Value Date Recorded Sex Assigned at Not on file Legal Sex Female 12:01 PM CAR SALES CONSULTANT Gender Identity Not on file Sexual Orientation [...] (Appt Today, Awaiting Results) 09/30/2024 11:18 AM CAR SALES CONSULTANT Influenza A POC INFLUENZA A/B, COVID-19 ANTIGEN Routine 09/30/2024 10:47 AM CAR SALES CONSULTANT Influenza A from Last 3 Months Results * XR Chest Pa Lateral 2 Views (09/30/2024 11:18 AM CAR SALES CONSULTANT) Anatomical Region Laterality Modality Body, Chest N/A Digital Radiogra phy 09/30/2024 1:13 PM CAR SALES CONSULTANT Narrative 09/30/2024 1:14 PM CAR SALES CONSULTANT EXAM DESCRIPTION: XR CHEST PA LATERAL 2 [...] signed by Gilma CHÁVEZ T: Report ID: [id number] Reading Location: [id number] Procedure Note Gilma Kaur MD - 09/30/2024 [...] Gilma Kaur M.D. LD T: Report ID: [id number] Reading Location: [id number] Tessy DELGADO IMG XR PROCEDURES Final Result * (ABNORMAL) POC Influenza A/B, COVID-19 antigen (09/30/2024 10:47 AM CAR SALES CONSULTANT) Influenza A Ag, POC Positive(A) Negative [facility] Influenza B Ag, POC Negative Negative [facility] COVID-19 Ag POC Presumptive Negative Presumptive Negative, Invalid [facility] Nasal 09/30/2024 10:4 7 AM CAR SALES CONSULTANT Tessy DELGADO POINT OF CARE TEST ORDER ELLEN Final Result [facility] [place] [address], [facility] from Last 3 Months Insurance [facility] IDMN AETNA [facility] IDPA Care Teams Mobile Crane Operator Relationship Specialty Start Date End Date Samy Reaves MD PCP - General Internal Medicine 07/01/23
--- NOTE | 2024-12-18 18:38 | ED.FEMALEGU ---
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 Patient had the procedure done with her OBGYN doctor Michelle Prather yesterday went home postoperatively. She states she was doing well postoperatively and in the middle night she was taking her medications. This morning she woke up with profound lower abdominal pain, abdominal cramping and nauseousness. No vaginal bleeding or vaginal discharge. Patient denies any fever chills, back pain. She states the pain she is experiencing now is worse than childbirth. She did not get chance to call her OBGYN and came to the emergency department <Franklyn Cheng MD - Last Filed: 12/19/24 10:11> Related Data Home medications: Home Medications ?Medication ?Instructions ?Recorded ?Confirmed ?Last Taken ?Type rizatriptan 10 mg disintegrating 10 mg PO ONCE PRN migraines 01/18/23 12/17/24 12/10/24 History tablet Excedrin Migraine 2 tab-cap PO PRN PRN migraines 03/12/23 12/17/24 12/10/24 History <Franklyn Cheng MD - Last Filed: 12/19/24 10:11> Allergies/Adverse reactions: Allergies Allergy/AdvReac Type Severity Reaction Status Date / Time No Known Allergies Allergy Unknown Verified 12/18/24 18:37 <Franklyn Cheng MD - Last Filed: 12/19/24 10:11> Review of Systems Review of Systems: As reviewed above in HPI <Franklyn Cheng MD - Last Filed: 12/19/24 10:11> PMFSH Family History Family History: Family History Mother Hypertension Son Myoclonic epilepsy Son Autism <Franklyn Cheng MD - Last Filed: 12/19/24 10:11> Social History Social History: Social History Smoking status: Never smoker Second hand tobacco smoke exposure: No Alcohol intake: never Substance use: never Substance use type: does not use Lack of Transportation: No Lack of Food: Never True Current Housing: I Have Housing Concerned About Future Housing: No Difficulty Paying Gas/Electric Bills: No Difficulty Paying for Meds: No Currently Unemployed: No Education: High School Diploma/GED Difficulty w/ Childcare or Family Care: No Living arrangements: with family Gender identity (if verbalized by the patient): Female Sexual Orientation (if Verbalized by the Patient): Straight or Heterosexual Spiritual care concerns: No <Franklyn Cheng MD - Last Filed: 12/19/24 10:11> Exam Narrative: GENERAL: [Well-appearing, well-nourished, and in no acute distress.] HEAD: [Normocephalic, atraumatic.] EYES: [PERRLA and EOMI.] ENT: Nares clear, no rhinorrhea or epistaxis. Mucous membranes moist. NECK: Supple. CHEST: [Clear to auscultation. No respiratory distress.] HEART: [Regular rate and rhythm]. No murmur heard. [Normal peripheral pulses.] ABDOMEN: Protuberant but soft, nondistended, tender to palpation globally, no signs of peritonitis, abdominal surgical scars are clean, dry, intact with no overlying skin changes or erythema, drainage, [No rigidity or guarding] EXTREMITIES: Normal range of motion. [No edema.] SKIN: Warm, dry, no rash. NEURO: [No focal deficits]. Alert and oriented [x3.] PSYCH: [Normal mood and affect.] <Franklyn Cheng MD - Last Filed: 12/19/24 10:11> Course Vital Signs Vital signs: Vital Signs Temperature 36.4 C 12/18/24 17:27 Pulse Rate 119 H 12/18/24 17:27 Respiratory Rate 16 12/18/24 17:27 Blood Pressure 150/98 H 12/18/24 17:27 Pulse Oximetry 100 12/18/24 17:27 Oxygen Delivery Room Air 12/18/24 17:27 Temperature 37.1 C 12/18/24 21:51 Pulse Rate 92 12/18/24 21:51 Respiratory Rate 16 12/18/24 21:51 Blood Pressure 153/92 H 12/18/24 21:51 Pulse Oximetry 99 12/18/24 21:51 Oxygen Delivery Room Air 12/18/24 17:27 <Franklyn Cheng MD - Last Filed: 12/19/24 10:11> Vital Signs Temperature 36.4 C 12/18/24 17:27 Pulse Rate 119 H 12/18/24 17:27 Respiratory Rate 16 12/18/24 17:27 Blood Pressure 150/98 H 12/18/24 17:27 Pulse Oximetry 100 12/18/24 17:27 Oxygen Delivery Room Air 12/18/24 17:27 Temperature 37.1 C 12/18/24 21:51 Pulse Rate 92 12/18/24 21:51 Respiratory Rate 16 12/18/24 21:51 Blood Pressure 153/92 H 12/18/24 21:51 Pulse Oximetry 99 12/18/24 21:51 Oxygen Delivery Room Air 12/18/24 17:27 <Coby Boucher PA-C - Last Filed: 12/19/24 01:16> MDM - Female Genitourinary MDM Narrative Medical decision making narrative: 29-year-old female that is postop day 1 from robotic total vaginal hysterectomy bilateral salpingectomy with her OBGYN yesterday. Patient did well postoperatively went home and today she woke up with diffuse abdominal pain, nauseousness and came to the hospital. She is slightly hypertensive with a blood pressure 166/100, tachycardia 119, afebrile, normal pulse ox and saturating well. She has a protuberant abdomen is soft but is tender to palpation without signs of peritonitis. Surgical scars are clean, dry, intact no purulence. Considerations presently are for postoperative pain, early abscess formation, perforated viscus, complication from surgery including vascular injury not excluded. She is overall wake answering questions and not in severe distress. Patient was given Dilaudid and fluids and re-evaluated. Laboratory studies were obtained including CBC, CMP, urinalysis and lipase. A CT of the abdomen pelvis with IV contrast was ordered. Patient re-evaluated and felt significantly improved, vital signs improved and no longer tachycardic. Patient has a small white count of 11.2, normal hemoglobin, normal platelets. Electrolytes are unremarkable. Normal renal function, normal glucose and LFTs. Negative lactic acid. Negative lipase. Urinalysis and CT scan pending. Patient care signed over to oncoming provider pending CT scan and urinalysis. Patient's vitals are normal and her unremarkable workup points towards a likely discharge home assuming no acute concerning findings on imaging. Patient was updated on plan of care. <Franklyn Cheng MD - Last Filed: 12/19/24 10:11> 29-year-old female that is postop day 1 from robotic total vaginal hysterectomy bilateral salpingectomy with her OBGYN yesterday. Patient did well postoperatively went home and today she woke up with diffuse abdominal pain, nauseousness and came to the hospital. She is slightly hypertensive with a blood pressure 166/100, tachycardia 119, afebrile, normal pulse ox and saturating well. She has a protuberant abdomen is soft but is tender to palpation without signs of peritonitis. Surgical scars are clean, dry, intact no purulence. Considerations presently are for postoperative pain, early abscess formation, perforated viscus, complication from surgery including vascular injury not excluded. She is overall wake answering questions and not in severe distress. Patient was given Dilaudid and fluids and re-evaluated. Laboratory studies were obtained including CBC, CMP, urinalysis and lipase. A CT of the abdomen pelvis with IV contrast was ordered. Patient re-evaluated and felt significantly improved, vital signs improved and no longer tachycardic. Patient has a small white count of 11.2, normal hemoglobin, normal platelets. Electrolytes are unremarkable. Normal renal function, normal glucose and LFTs. Negative lactic acid. Negative lipase. Urinalysis and CT scan pending. Patient care signed over to oncoming provider pending CT scan and urinalysis. Patient's vitals are normal and her unremarkable workup points towards a likely discharge home assuming no acute concerning findings on imaging. Patient was updated on plan of care. Coby Boucher PA-C: Care signed out to myself pending CT abdomen pelvis and urinalysis. UA with blood, she does report slight vaginal bleeding, 1+ leuk esterase, 1+ bacteria moderate squamous cells. She denies dysuria or other urinary complaints. CT abd/pelvis shows IMPRESSION: 1. No evidence of appendicitis, diverticulitis or intestinal obstruction. 2. Fluid in the pelvis and right lower quadrant which may be postoperative. 3. Right ovarian cyst. 4. Fat stranding in the supraumbilical and left anterior abdominal wall which may be postoperative. Clinical correlation and further evaluation advised. Patient re-evaluated by myself. Abdomen remains soft with diffuse tenderness, surgical incisions are well appearing with no signs of wound dehiscence or infection, no rebound, no guarding, no rigidity, no evidence of peritonitis. Patient reports improvement after IV fluids, Dilaudid and Zofran. Tachycardia resolved. She does have hydrocodone at home which she took around today without reported improvement. I discussed findings with OBGYN on-call for Dr. Michelle Prather, Dr. Marcos, who agrees that patient's presentation is consistent with post-op status. Advises to switch hydrocodone to Percocet and follow-up closely with Dr. Esposito. Patient was given strict ED return precautions. She is agreeable with the plan verbalized understanding. Discharged in stable condition. <Coby Boucher PA-C - Last Filed: 12/19/24 01:16> Medical Records Attestation: I reviewed the patient's medical records. <Franklyn Cheng MD - Last Filed: 12/19/24 10:11> Lab Data Attestation: I reviewed the patient's lab results. <Franklyn Cheng MD - Last Filed: 12/19/24 10:11> Result diagrams: 12/18/24 18:34 12/18/24 18:34 <Franklyn Cheng MD - Last Filed: 12/19/24 10:11> Labs: Lab Results 12/18/24 12/18/24 Range/Units 18:34 20:18 WBC 11.2 H (4.5-10.0) K/mm3 RBC 4.56 (4.2-5.4) M/mm3 Hgb 13.6 (12.0-15.0) g/dL Hct 41.7 (37.0-47.0) % MCV 91.4 (80-100) fl MCH 29.8 (26-34) pg MCHC 32.6 (32-36) g/dl RDW 12.1 (11.5-14.5) % Plt Count 258 (150-375) k/mm3 MPV 9.4 (7.4-10.4) fl Immature Gran % (Auto) 0.5 (0-0.5) % Neut % (Auto) 76.2 H (45.5-73.1) % Lymph % (Auto) 15.5 L (18.3-44.2) % [place] % (Auto) 7.5 (2.6-8.5) % Eos % (Auto) 0.0 (0-4.4) % Baso % (Auto) 0.3 (0.2-1.2) % Lymph # (Auto) 1.74 (0.9-3.2) K/mm3 [place] # (Auto) 0.8 H (0.1-0.6) K/mm3 Eos # (Auto) 0.0 (0-0.3) K/mm3 Baso # (Auto) 0.0 (0.0-0.1) K/mm3 Abs Immat Gran (auto) 0.06 H (0.00-0.031) K/mm3 Absolute Neuts (auto) 8.6 H (1.3-6.7) K/mm3 Absolute Nucleated RBC 0.000 (0.0-0.012) K/mm3 Nucleated RBC % 0.0 (0.0-0.2) % Sodium 138 (137-145) mmol/L Potassium 3.5 (3.4-5.0) mmol/L Chloride 103 (98-107) mmol/L Carbon Dioxide 28 (22-30) mmol/L Anion Gap 7 (4-12) mmol/L BUN 9 (7-17) mg/dL Creatinine 0.79 (0.7-1.0) mg/dL Estim Creat Clear Calc 105 ml/min Estimated GFR > 60 (59 - ) Glucose 107 (65-110) mg/dL Lactic Acid 1.0 (0.7-2.0) mmol/L Calcium 8.5 (8.4-10.2) mg/dL Total Bilirubin 0.8 (0.2-1.3) mg/dL AST 22 (14-36) U/L ALT 20 (6-35) U/L Alkaline Phosphatase 74 (38-126) U/L Total Protein 7.0 (6.3-8.2) g/dL Albumin 4.0 (3.5-5.1) g/dL Lipase 91 (23-300) U/L Urine Color Yellow (Yellow) Urine Appearance Cloudy H (Clear) Urine pH 7.0 (5.0-9.0) Ur Specific [place] > 1.045 H (1.001-1.035) Urine Protein Negative (Negative) mg/dL Urine Glucose (UA) Negative (Negative) mg/dL Urine Ketones Negative (Negative) mg/dL Ur Blood (Man) 3+ H (Negative) Urine Nitrate Negative (Negative) Urine Bilirubin Negative (Negative) Urine Urobilinogen 1.0 (<2.0) mg/dL Add Ur Microanalysis Reviewed Leukocyte Esterase Rfl 1+ H (Negative) PIA/UL Urine RBC 11-20 H (0-2) /hpf Urine WBC 0-5 (0-3) /hpf Ur Squamous Epith Cells Moderate (Few) /hpf Urine Bacteria 1+ H /hpf Urine Casts 0-2 <Franklyn Cheng MD - Last Filed: 12/19/24 10:11> Lab Results 12/18/24 12/18/24 Range/Units 18:34 20:18 WBC 11.2 H (4.5-10.0) K/mm3 RBC 4.56 (4.2-5.4) M/mm3 Hgb 13.6 (12.0-15.0) g/dL Hct 41.7 (37.0-47.0) % MCV 91.4 (80-100) fl MCH 29.8 (26-34) pg MCHC 32.6 (32-36) g/dl RDW 12.1 (11.5-14.5) % Plt Count 258 (150-375) k/mm3 MPV 9.4 (7.4-10.4) fl Immature Gran % (Auto) 0.5 (0-0.5) % Neut % (Auto) 76.2 H (45.5-73.1) % Lymph % (Auto) 15.5 L (18.3-44.2) % [place] % (Auto) 7.5 (2.6-8.5) % Eos % (Auto) 0.0 (0-4.4) % Baso % (Auto) 0.3 (0.2-1.2) % Lymph # (Auto) 1.74 (0.9-3.2) K/mm3 [place] # (Auto) 0.8 H (0.1-0.6) K/mm3 Eos # (Auto) 0.0 (0-0.3) K/mm3 Baso # (Auto) 0.0 (0.0-0.1) K/mm3 Abs Immat Gran (auto) 0.06 H (0.00-0.031) K/mm3 Absolute Neuts (auto) 8.6 H (1.3-6.7) K/mm3 Absolute Nucleated RBC 0.000 (0.0-0.012) K/mm3 Nucleated RBC % 0.0 (0.0-0.2) % Sodium 138 (137-145) mmol/L Potassium 3.5 (3.4-5.0) mmol/L Chloride 103 (98-107) mmol/L Carbon Dioxide 28 (22-30) mmol/L Anion Gap 7 (4-12) mmol/L BUN 9 (7-17) mg/dL Creatinine 0.79 (0.7-1.0) mg/dL Estim Creat Clear Calc 105 ml/min Estimated GFR > 60 (59 - ) Glucose 107 (65-110) mg/dL Lactic Acid 1.0 (0.7-2.0) mmol/L Calcium 8.5 (8.4-10.2) mg/dL Total Bilirubin 0.8 (0.2-1.3) mg/dL AST 22 (14-36) U/L ALT 20 (6-35) U/L Alkaline Phosphatase 74 (38-126) U/L Total Protein 7.0 (6.3-8.2) g/dL Albumin 4.0 (3.5-5.1) g/dL Lipase 91 (23-300) U/L Urine Color Yellow (Yellow) Urine Appearance Cloudy H (Clear) Urine pH 7.0 (5.0-9.0) Ur Specific [place] > 1.045 H (1.001-1.035) Urine Protein Negative (Negative) mg/dL Urine Glucose (UA) Negative (Negative) mg/dL Urine Ketones Negative (Negative) mg/dL Ur Blood (Man) 3+ H (Negative) Urine Nitrate Negative (Negative) Urine Bilirubin Negative (Negative) Urine Urobilinogen 1.0 (<2.0) mg/dL Add Ur Microanalysis Reviewed Leukocyte Esterase Rfl 1+ H (Negative) PIA/UL Urine RBC 11-20 H (0-2) /hpf Urine WBC 0-5 (0-3) /hpf Ur Squamous Epith Cells Moderate (Few) /hpf Urine Bacteria 1+ H /hpf Urine Casts 0-2 <Coby Boucher PA-C - Last Filed: 12/19/24 01:16> Discharge Plan Discharge Clinical Impression: Postoperative abdominal pain, Status post laparoscopic hysterectomy <Franklyn Cheng MD - Last Filed: 12/19/24 10:11> Patient Disposition: Home <Franklyn Cheng MD - Last Filed: 12/19/24 10:11> Condition: Stable <Franklyn Cheng MD - Last Filed: 12/19/24 10:11> Instructions: Antibiotic Form, Abdominal Pain (ED) <Franklyn Cheng MD - Last Filed: 12/19/24 10:11> Additional Instructions: Your were evaluated in the emergency department for abdominal pain after having a hysterectomy yesterday. The CT findings shows some fluid in your pelvis inflammation of your abdomen which is normal findings after surgery. Please take Percocet as needed for pain and follow-up closely with your OBGYN. Return to the emergency department if you develop fever, worsening abdominal pain, redness or drainage out of your wounds, bleeding through 1 pad or tampon per hour, or other concerning symptoms. <Franklyn Cheng MD - Last Filed: 12/19/24 10:11> Patient Language: Ukrainian <Franklyn Cheng MD - Last Filed: 12/19/24 10:11> Prescriptions: New oxycodone-acetaminophen 5-325 mg tablet 1 tablet PO Q6H PRN (Reason: pain) Qty: 14 0RF No Action rizatriptan 10 mg Tablet,Disintegrating 10 mg PO ONCE PRN (Reason: migraines) Rx Instructions: may repeat once after at least 2 hours Excedrin Migraine 2 tab-cap PO PRN PRN (Reason: migraines) hydrocodone-acetaminophen 5-325 mg tablet 1 tablet PO Q4H PRN (Reason: pain) Qty: 20 0RF <Franklyn Cheng MD - Last Filed: 12/19/24 10:11> Follow-up/Referrals: Reji Lockett MD [Physician] - Samy Reaves MD [Primary Care Provider] - <Franklyn Cheng MD - Last Filed: 12/19/24 10:11>
[2024-12-18] MEDS: HYDROmorphone HCL INJ (*CRX) 2 MG/ML VIAL 1 MG IV PUSH (18:42)
[2024-12-18] MEDS: ONDANSETRON INJ 4 MG/2 ML VIAL IV PUSH (18:42)
[2024-12-18 18:54] LABS: Basophils Percent Auto 0.3 % (0.2-1.2); Hematocrit 41.7 % (37.0-47.0); Hemoglobin 13.6 g/dL (12.0-15.0); Immature Granulocyte Absolute 0.06 K/mm3 (0.00-0.031); Immature Granulocyte Percent A 0.5 % (0-0.5); Lymphocytes Absolute Auto 1.74 K/mm3 (0.9-3.2); Lymphocytes Percent Auto 15.5 % (18.3-44.2); Mean Corpuscular HGB Conc 32.6 g/dl (32-36); Mean Corpuscular Hemoglobin 29.8 pg (26-34); Mean Corpuscular Volume 91.4 fl (80-100); Mean Platelet Volume 9.4 fl (7.4-10.4); Monocytes Absolute Auto 0.8 K/mm3 (0.1-0.6); Monocytes Percent Auto 7.5 % (2.6-8.5); Neutrophils Absolute Auto 8.6 K/mm3 (1.3-6.7); Neutrophils Percent Auto 76.2 % (45.5-73.1); Platelet Count Result 258 k/mm3 (150-375); Red Blood Count 4.56 M/mm3 (4.2-5.4); Red Cell Distribution Width 12.1 % (11.5-14.5); White Blood Count 11.2 K/mm3 (4.5-10.0)
[2024-12-18 19:12] LABS: Alanine Aminotransferase 20 U/L (6-35); Alkaline Phosphatase 74 U/L (38-126); Anion Gap 7 mmol/L (4-12); Aspartate Amino Transferase 22 U/L (14-36); Bilirubin,Total 0.8 mg/dL (0.2-1.3); Blood Urea Nitrogen 9 mg/dL (7-17); Calcium 8.5 mg/dL (8.4-10.2); Carbon Dioxide 28 mmol/L (22-30); Chloride 103 mmol/L (98-107); Estimated CRCL calculation 105 ml/min; Estimated Glomerular Filt Rate > 60; Glucose 107 mg/dL (65-110); Lipase 91 U/L (23-300); Potassium 3.5 mmol/L (3.4-5.0); Sodium 138 mmol/L (137-145)
[2024-12-18 20:36] LABS: Add Urine Microscopic? YES; Appearance Urine Cloudy (Clear); Bacteria Urine 1+ /hpf; Bilirubin Urine Negative (Negative); Blood Urine 3+ (Negative); Color Urine Yellow (Yellow); Glucose Urine UA Negative (Negative); Ketones Urine Negative (Negative); Leukocyte Esterase Ur 1+ LEU/UL (Negative); Need Manual Microscopic Reviewed; Nitrate Urine Negative (Negative); Non Pathogenic Casts 0-2; Protein Urine Negative (Negative); Specific Grav Ur > 1.045 (1.001-1.035); Squamous Epithelial Cell Urine Moderate /hpf (Few); WBC Urine 0-5 /hpf (0-3)
[2024-12-18 20:42] VITALS: BP 157/93; PULSE 99; RESP 17; O2SAT 97
[2024-12-18 21:49] VITALS: BP 153/92; PULSE 92; RESP 16; TEMP 37.1; O2SAT 99
[2024-12-18 21:51] VITALS: BP 153/92; PULSE 92; RESP 16; TEMP 37.1; O2SAT 99
== END 2024-12-18 21:53 | disposition home or self-care (01) ==
PROVIDERS: Emergency Provider Student in an Organized Health Care Education/Training Program; PCP Internal Medicine
DX: G89.18 Other acute postprocedural pain (principal); R10.30 Lower abdominal pain, unspecified; Z90.710 Acquired absence of both cervix and uterus; Z90.79 Acquired absence of other genital organ(s); N83.201 Unspecified ovarian cyst, right side
CPT/HCPCS: 36415; 74177; 80053; 81001; 83605; 83690; 85025; 96361; 96374; 96375; 99284; J1171; J2405; J7120; Q9967